=== PATIENT | female | born 1965 | race Caucasian/White ===

== ENCOUNTER 2016-06-16 16:31 | Emergency (ER) | payer MEDICAID ==
[~2016-06-16] VITALS: Ht 154.9 cm; Wt 66.2 kg
[~2016-06-16 16:31] MED LIST: AMLO5 PO; BACT800T5 PO; CLIN1CAP6 PO
[2016-06-16 16:59] VITALS: BP 136/95; PULSE 87; RESP 18; TEMP 98.4; O2SAT 97
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
[2016-06-16] MEDS ORDERED: BACT800T5 PO (18:51)
[2016-06-16] MEDS ORDERED: TRAM50TA PO (18:51)
[2016-06-16] MEDS ORDERED: CLIN1CAP6 PO (18:51)
[2016-06-16] MEDS ORDERED: BACT2OIN TOPICAL (18:51)
== END 2016-06-16 19:16 | disposition home or self-care (01) ==
LOC: PHEFT 16:31
DX: L03.113 Cellulitis of right upper limb (principal); L03.114 Cellulitis of left upper limb; S50.861A Insect bite (nonvenomous) of right forearm, initial encounter; S50.862A Insect bite (nonvenomous) of left forearm, initial encounter; B95.62 Methicillin resistant Staphylococcus aureus infection as the cause of diseases classified elsewhere; I10 Essential (primary) hypertension; F17.210 Nicotine dependence, cigarettes, uncomplicated; F41.9 Anxiety disorder, unspecified; W57.XXXA Bitten or stung by nonvenomous insect and other nonvenomous arthropods, initial encounter; Y93.9 Activity, unspecified; Y92.9 Unspecified place or not applicable; Y99.9 Unspecified external cause status
CPT/HCPCS: 86403; 87070; 87186; 87205; 99283

== ENCOUNTER 2016-07-19 18:21 | Emergency (ER) | payer MEDICAID ==
[~2016-07-19] VITALS: Ht 154.9 cm; Wt 62.5 kg
[~2016-07-19 18:21] MED LIST changes: +BACT2OIN TOPICAL; +TRAM50TA PO
[2016-07-19 18:37] VITALS: BP 139/87; PULSE 56; RESP 18; TEMP 98; O2SAT 100
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
[2016-07-19] MEDS ORDERED: MEDR4PAK PO (19:02)
[2016-07-19] MEDS ORDERED: predniSONE 50 MG TAB PO ONE (19:15)
== END 2016-07-19 19:15 | disposition home or self-care (01) ==
LOC: PHEFT 18:21
DX: M54.32 Sciatica, left side (principal); I10 Essential (primary) hypertension; F17.210 Nicotine dependence, cigarettes, uncomplicated; G89.29 Other chronic pain
CPT/HCPCS: 99283; J7512

== ENCOUNTER 2016-08-09 14:15 | Emergency (ER) | payer MEDICAID ==
[~2016-08-09] VITALS: Ht 154.9 cm; Wt 63.0 kg
[~2016-08-09 14:15] MED LIST changes: -BACT2OIN TOPICAL; -BACT800T5 PO; -CLIN1CAP6 PO; +MEDR4PAK PO; -TRAM50TA PO
[2016-08-09 14:17] VITALS: BP 150/110; PULSE 79; RESP 16; TEMP 97.8; O2SAT 99
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
[2016-08-09] MEDS ORDERED: CLINDAMYCIN 150 MG CAP PO ONE (15:45)
[2016-08-09] MEDS ORDERED: ACETAMINOPHEN/HYDROcodone 325 MG/5 MG TAB PO ONE (15:45)
[2016-08-09] MEDS ORDERED: HYDR-3533 PO (15:48)
[2016-08-09] MEDS ORDERED: CLIN1CAP5 PO (15:48)
== END 2016-08-09 16:26 | disposition home or self-care (01) ==
LOC: PHEFT 14:15
DX: L03.114 Cellulitis of left upper limb (principal); L03.113 Cellulitis of right upper limb; F41.9 Anxiety disorder, unspecified; K21.9 Gastro-esophageal reflux disease without esophagitis; I10 Essential (primary) hypertension; F17.200 Nicotine dependence, unspecified, uncomplicated
CPT/HCPCS: 99283

== ENCOUNTER 2016-08-16 00:48 | Emergency (ER) | payer MEDICAID ==
[~2016-08-16] VITALS: Ht 154.9 cm; Wt 65.5 kg
[~2016-08-16 00:48] MED LIST changes: +CLIN1CAP5 PO; +HYDR-3533 PO; -MEDR4PAK PO
[2016-08-16 00:51] VITALS: BP 155/99; PULSE 71; RESP 18; TEMP 97.8; O2SAT 95
[2016-08-16] MEDS ORDERED: MORPHINE SULFATE 4 MG/ML INJ IV PUSH ONE (01:15)
[2016-08-16] MEDS ORDERED: SODIUM CHLORIDE 0.9% FLUSH 10 ML FLUSH IVF PRN (01:15)
[2016-08-16] MEDS ORDERED: SODIUM CHLORID 0.9% 500 ML INJ 500 ML IV ONE (01:15)
[2016-08-16 01:20] VITALS: BP 127/86; PULSE 71; RESP 18; O2SAT 99
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
[2016-08-16 01:26] LABS: AUTOMATED NEUTROPHIL # 8.5 TH/MM3 (1.8-7.7); BASOPHIL # 0.4 TH/MM3 (0-0.2); BASOPHIL % 3.7 % (0.0-2.0); EOSINOPHIL # 0.1 TH/MM3 (0-0.4); EOSINOPHIL % 0.7 % (0.0-4.0); HEMATOCRIT 38.8 % (35.0-46.0); HEMO FLAGS DIFF FINAL; LYMPH % 18.2 % (9.0-44.0); LYMPHOCYTE # 2.1 TH/MM3 (1.0-4.8); MEAN CELL VOLUME 84.3 FL (80.0-100.0); MEAN CORPUSCULAR HEMOGLOBIN 27.7 PG (27.0-34.0); MEAN CORPUSCULAR HGB CONC 32.9 % (32.0-36.0); MONO % 6.2 % (0.0-8.0); NEUT % 71.2 % (16.0-70.0); PLATELET COUNT 280 TH/MM3 (150-450); RED BLOOD COUNT 4.61 MIL/MM3 (4.00-5.30); RED CELL DISTRIBUTION WIDTH 13.9 % (11.6-17.2); WHITE BLOOD COUNT 11.8 TH/MM3 (4.0-11.0)
[2016-08-16] MEDS ORDERED: IMIPENEM/CILASTAT 500 MG in NS MINIBAG 100 ML IV ONE (01:30)
[2016-08-16 01:33] LABS: POTASSIUM 3.6 MEQ/L (3.5-5.1)
[2016-08-16 01:36] LABS: BICARBONATE 26.2 MEQ/L (21.0-32.0)
[2016-08-16 02:00] VITALS: BP 144/102; PULSE 72; RESP 18; O2SAT 99
[2016-08-16] MEDS ORDERED: IOHEXOL 350 MG/ML 10 ML VIAL (for RAD DIAG) IV ONE (02:08)
[2016-08-16 03:00] VITALS: BP 153/101; PULSE 82; RESP 18; O2SAT 95
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
== END 2016-08-16 03:40 | disposition left against medical advice (07) ==
LOC: PHED 00:48
DX: L03.213 Periorbital cellulitis (principal); K08.89 Other specified disorders of teeth and supporting structures; I10 Essential (primary) hypertension; F17.200 Nicotine dependence, unspecified, uncomplicated; Z86.59 Personal history of other mental and behavioral disorders; Z86.79 Personal history of other diseases of the circulatory system; Z87.19 Personal history of other diseases of the digestive system; Z87.39 Personal history of other diseases of the musculoskeletal system and connective tissue; Z86.14 Personal history of Methicillin resistant Staphylococcus aureus infection; Z53.29 Procedure and treatment not carried out because of patient's decision for other reasons
CPT/HCPCS: 70487; 80048; 85025; 96361; 96365; 96375; 99283; J0743; J2270; J7040; Q9967

== ENCOUNTER 2016-09-23 14:19 | Emergency (ER) | payer MEDICAID ==
[~2016-09-23] VITALS: Ht 154.9 cm; Wt 61.0 kg
[~2016-09-23 14:19] MED LIST changes: -HYDR-3533 PO
[2016-09-23 14:21] VITALS: BP 159/102; PULSE 89; RESP 16; TEMP 98.4; O2SAT 99
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
[2016-09-23] MEDS ORDERED: predniSONE 20 MG TAB PO ONE (14:30)
[2016-09-23] MEDS ORDERED: PRED20 PO (14:35)
[2016-09-23] MEDS ORDERED: TRAM50TA PO (14:35)
[2016-09-23] MEDS ORDERED: ORPH100T99 PO (14:35)
== END 2016-09-23 14:40 | disposition home or self-care (01) ==
LOC: PHEFT 14:19
DX: M54.5 Low back pain (principal); M79.605 Pain in left leg; I10 Essential (primary) hypertension; F17.200 Nicotine dependence, unspecified, uncomplicated; Z86.59 Personal history of other mental and behavioral disorders; Z86.79 Personal history of other diseases of the circulatory system; Z87.19 Personal history of other diseases of the digestive system; Z87.39 Personal history of other diseases of the musculoskeletal system and connective tissue; Z86.14 Personal history of Methicillin resistant Staphylococcus aureus infection
CPT/HCPCS: 99283; J7512

== ENCOUNTER 2016-09-26 18:51 | Emergency (ER) | payer MEDICAID ==
[~2016-09-26] VITALS: Ht 154.9 cm; Wt 61.7 kg
[~2016-09-26 18:51] MED LIST changes: -CLIN1CAP5 PO; +ORPH100T99 PO; +PRED20 PO; +TRAM50TA PO
[2016-09-26 18:54] VITALS: BP 144/107; PULSE 98; RESP 16; TEMP 98.7; O2SAT 99
[2016-09-26] MEDS ORDERED: ROBA750T PO (19:58)
[2016-09-26] MEDS ORDERED: HYDR-3533 PO (19:58)
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
== END 2016-09-26 20:20 | disposition home or self-care (01) ==
LOC: PHED 18:51 → PHEFT 20:20
DX: M54.32 Sciatica, left side (principal); I10 Essential (primary) hypertension; F17.210 Nicotine dependence, cigarettes, uncomplicated
CPT/HCPCS: 99284

== ENCOUNTER 2016-12-04 00:32 | Emergency (ER) | payer OTHER, MEDICAID ==
[~2016-12-04] VITALS: Ht 154.9 cm; Wt 60.0 kg
[~2016-12-04 00:32] MED LIST changes: +HYDR-3533 PO; +ROBA750T PO
[2016-12-04 00:37] VITALS: BP 166/89; PULSE 82; RESP 14; TEMP 98.8; O2SAT 99
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
[2016-12-04] MEDS ORDERED: KETOROLAC TROMETHAMINE 60 MG/2 ML (IM) VIAL IM ONE (01:00)
[2016-12-04] MEDS ORDERED: ORPHENADRINE INJ 60 MG/2 ML AMP IM ONE (01:00)
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
[2016-12-04] MEDS ORDERED: IBUPROFEN 600 MG TAB PO ONE (02:00)
[2016-12-04] MEDS ORDERED: METHOCARBAMOL 500 MG TAB PO ONE (02:00)
[2016-12-04] MEDS ORDERED: NAPR500 PO (02:24)
[2016-12-04] MEDS ORDERED: ROBA500T PO (02:24)
== END 2016-12-04 02:56 | disposition home or self-care (01) ==
LOC: NEPD 00:32
DX: S46.912A Strain of unspecified muscle, fascia and tendon at shoulder and upper arm level, left arm, initial encounter (principal); S50.811A Abrasion of right forearm, initial encounter; S40.812A Abrasion of left upper arm, initial encounter; I10 Essential (primary) hypertension; F17.210 Nicotine dependence, cigarettes, uncomplicated; V43.72XA Person on outside of car injured in collision with other type car in traffic accident, initial encounter; Y93.89 Activity, other specified; Y92.410 Unspecified street and highway as the place of occurrence of the external cause
CPT/HCPCS: 71010; 73030; 99284

== ENCOUNTER 2018-01-01 04:39 | Inpatient (IN) ==
[2018-01-01] MEDS ORDERED: Vancomycin Inj 1,000 MG in Sodium Chlor 0.9% Inj 250 ML IV.SIG ONE (04:47)
--- NOTE | 2018-01-01 04:48 | ED ---
HPI General Chief Complaint: Skin/Abscess/Foreign Body Stated Complaint: MEDICAL Time Seen by Provider: 01/01/18 04:42 History of Present Illness HPI narrative: 52-year-old female presents to the emergency department for complaint of pleuritic chest pain and shortness of breath also for complaint of injury to the left index finger. One week ago she shut her left index finger into her car door and then 2 days ago started noticing redness since patient is able to move the finger back and forth but is not able to palpate the finger secondary to severe pain with palpation. Patient complains of severe chest pain that worsens with any movement or deep breathing. Patient denies any recent trauma or injury. No fever chills. No axillary tenderness or lymphadenopathy. Patient is right-handed. Patient is taken no pain for her symptoms. Patient arrived by EMS transport. Patient denies any chronic medical conditions. Review of medical records indicates patient has had several admissions for cellulitis and abscess that has been methicillin- resistant staph. Complete Quality Measures for STEMI Alert Patients Related Data Home Medications Medication Instructions Recorded Confirmed No Known Home Medications 01/01/18 01/01/18 Allergies Allergy/AdvReac Type Severity Reaction Status Date / Time cephalexin Allergy Severe HIVE Verified 01/01/18 04:42 penicillin G Allergy Severe HIVES, Verified 01/01/18 04:42 THROAT SWELLS propoxyphene Allergy Severe Hives Verified 01/01/18 04:42 diclofenac AdvReac Severe GI BLEED Verified 01/01/18 04:42 etodolac AdvReac Severe GI BLEED Verified 01/01/18 04:42 flurbiprofen AdvReac Severe GI BLEED Verified 01/01/18 04:42 ibuprofen AdvReac Severe GI BLEED Verified 01/01/18 04:42 indomethacin AdvReac Severe GI BLEED Verified 01/01/18 04:42 ketoprofen AdvReac Severe GI BLEED Verified 01/01/18 04:42 ketorolac AdvReac Severe GI BLEED Verified 01/01/18 04:42 naproxen AdvReac Severe GI BLEED Verified 01/01/18 05:30 oxaprozin AdvReac Severe GI BLEED Verified 01/01/18 05:30 Review of Systems ROS: all other systems reviewed are negative PMFSH Medical History Medical History Bowel obstruction (Acute) History of hysterectomy (Acute) Social History Social History Smoking Status: Current every day smoker Tobacco Type: Cigarettes How Often Do You Have a Drink Containing Alcohol: 2 to 4 times a month Recent Travel in [facility] within the Last 8 Weeks: No Recent Out of Country Travel within the Last 8 Weeks: No Exam Narrative Exam Narrative: GENERAL: Well-nourished, well-developed patient. SKIN: Focused skin assessment warm/dry. HEAD: Normocephalic. EYES: No scleral icterus. No injection or drainage. NECK: Supple, trachea midline. No JVD or lymphadenopathy. CARDIOVASCULAR: Regular rate and rhythm without murmurs, gallops, or rubs. RESPIRATORY: Breath sounds equal bilaterally. No accessory muscle use. GASTROINTESTINAL: Abdomen soft, non-tender, nondistended. MUSCULOSKELETAL: No cyanosis, or edema. Attention left upper extremity patient has soft tissue swelling and redness and tenderness to palpation overlying the dorsum of the left hand extending to the left index finger where there is a 2 cm x 2 cm ulcerative lesion with tenderness and serous drainage. Patient is able to perform left index finger flexion extension at the second MCP PIP and DIP range of motion for flexion is limited secondary to soft tissue swelling but patient does not complain of pain with range of motion of the digit only with direct palpation of the soft tissue overlying the dorsum of left hand no ascending erythema soft tissue swelling is also noted isolated to the dorsum of the left arm no axillary tenderness or lymphadenopathy noted. BACK: Nontender without obvious deformity. No CVA tenderness. Course Consultations Consultation #1: discussed with Dr Gilmore and Dr Black Time: 08:28 Initial Documented Vital Signs Temperature 99.2 F 01/01/18 04:43 Pulse Rate 95 H 01/01/18 04:43 Respiratory Rate 24 01/01/18 04:43 Blood Pressure 168/112 H 01/01/18 04:43 Pulse Oximetry 100 01/01/18 04:43 Last Documented Vital Signs Temperature 99.2 F 01/01/18 04:43 Pulse Rate 88 01/01/18 06:12 Respiratory Rate 20 01/01/18 06:12 Blood Pressure 158/94 H 01/01/18 06:12 Pulse Oximetry 100 01/01/18 06:12 Medical Decision Making MDM Narrative Medical decision making narrative: 52-year-old female presents to the emergency department by EMS transport for complaint of pleuritic chest pain with shortness of breath in for redness and swelling of the left hand specifically dorsal aspect and affecting the left index finger with ulcerative abrasion injury radial aspect 2 cm x 2 cm with serous drainage. Patient does not appear to have pain on active range of motion or passive range of motion of the left index finger but does have soft tissue swelling over the dorsum of the left hand and that is tender to palpation. No ascending erythema. Patient has second lesion on the dorsal aspect of the mid left forearm no purulent drainage minimally tender to direct palpation no deformity noted. IV access obtained specimens collected and sent for resulting including culture of the left index finger patient placed on cardiac rehabilitation specialist with continuous pulse oximetry patient administered a one-time dose of morphine sulfate 3 mg IV with Zofran 4 mg IV. CTA negative for PE; CT left hand shows no evidence of fluid collection for abscess positive soft tissue is noted specifically of the left index finger. Rhodell case discussed with on-call hand surgeon Dr. Wilder Brownlee at this point time patient does not appear to have acute surgical tenosynovitis affecting the left index finger as no pain on flexion extension of the digit passively or actively however patient does have evidence of cellulitis with marked swelling of the left index finger per hand surgeon request consult after admitted to medicine service. Call placed to [facility] service for admission Medical Screen Exam Complete: Yes Emergency Medical Condition: Yes Differential Diagnosis Differential Diagnosis: cellulitis abscess tenosynovitis chest pain atypical chest pain pleurisy costochondritis PE pneumothorax pneumonia polysubstance abuse alcohol intoxication [place] Medical Records Medical records reviewed: Yes I reviewed the patient's medical records. Lab Data Result diagrams: 01/01/18 05:00 01/01/18 05:00 Lab Results 01/01/18 01/01/18 01/01/18 Range/Units 05:00 05:00 05:00 WBC 13.2 H (4.0-11.0) th/mm3 RBC 4.25 (4.00-5.30) mil/mm3 Hgb 12.4 (11.6-15.3) gm/dL Hct 37.4 (35.0-46.0) % MCV 87.9 (80.0-100.0) fL MCH 29.1 (27.0-34.0) pg MCHC 33.1 (32.0-36.0) % RDW 14.4 (11.6-17.2) % Plt Count 217 (150-450) th/mm3 MPV 10.0 (7.0-11.0) fL Neut % (Auto) 80.5 H (16.0-70.0) % Lymph % (Auto) 12.2 (9.0-44.0) % [place] % (Auto) 5.9 (0.0-8.0) % Eos % (Auto) 1.0 (0.0-4.0) % Baso % (Auto) 0.4 (0.0-2.0) % Neut # (Auto) 10.6 H (1.8-7.7) th/mm3 Lymph # (Auto) 1.6 (1.0-4.8) th/mm3 [place] # (Auto) 0.8 (0.0-0.9) th/mm3 Eos # (Auto) 0.1 (0.0-0.4) th/mm3 Baso # (Auto) 0.1 (0.0-0.2) th/mm3 WBC Differential . Differential Comment Auto diff final PT 10.0 (9.8-11.6) sec INR 1.0 Ratio APTT 32.8 H (24.3-30.1) sec D-Dimer Quant (PE/DVT) 0.87 H (0.00-0.50) mg/L FEU Sodium 139 (136-145) meq/L Potassium 3.2 L (3.5-5.1) meq/L Chloride 103 (98-107) meq/L Carbon Dioxide 25.7 (21.0-32.0) meq/L Anion Gap 10 (5-15) meq/L BUN 6 L (7-18) mg/dL Creatinine 0.76 (0.50-1.00) mg/dL Estimated GFR 81 L (>89) mL/min Random Glucose 106 (74-106) mg/dL Lactic Acid (0.4-2.0) mmol/L Calcium 8.2 L (8.5-10.1) mg/dL Magnesium 2.3 (1.5-2.5) mg/dL Troponin I Less than 0.02 L (0.02-0.05) ng/mL Urine Opiates Screen (Neg) Ur Barbiturates Screen (Neg) Ur Amphetamines Screen (Neg) U Benzodiazepines Scrn (Neg) Urine Cocaine Screen (Neg) U Cannabinoids Screen (Neg) Serum Alcohol Less than 3 (0-5) mg/dL 01/01/18 01/01/18 Range/Units 05:00 06:00 WBC (4.0-11.0) th/mm3 RBC (4.00-5.30) mil/mm3 Hgb (11.6-15.3) gm/dL Hct (35.0-46.0) % MCV (80.0-100.0) fL MCH (27.0-34.0) pg MCHC (32.0-36.0) % RDW (11.6-17.2) % Plt Count (150-450) th/mm3 MPV (7.0-11.0) fL Neut % (Auto) (16.0-70.0) % Lymph % (Auto) (9.0-44.0) % [place] % (Auto) (0.0-8.0) % Eos % (Auto) (0.0-4.0) % Baso % (Auto) (0.0-2.0) % Neut # (Auto) (1.8-7.7) th/mm3 Lymph # (Auto) (1.0-4.8) th/mm3 [place] # (Auto) (0.0-0.9) th/mm3 Eos # (Auto) (0.0-0.4) th/mm3 Baso # (Auto) (0.0-0.2) th/mm3 WBC Differential Differential Comment PT (9.8-11.6) sec INR Ratio APTT (24.3-30.1) sec D-Dimer Quant (PE/DVT) (0.00-0.50) mg/L FEU Sodium (136-145) meq/L Potassium (3.5-5.1) meq/L Chloride (98-107) meq/L Carbon Dioxide (21.0-32.0) meq/L Anion Gap (5-15) meq/L BUN (7-18) mg/dL Creatinine (0.50-1.00) mg/dL Estimated GFR (>89) mL/min Random Glucose (74-106) mg/dL Lactic Acid 1.9 (0.4-2.0) mmol/L Calcium (8.5-10.1) mg/dL Magnesium (1.5-2.5) mg/dL Troponin I (0.02-0.05) ng/mL Urine Opiates Screen Neg (Neg) Ur Barbiturates Screen Neg (Neg) Ur Amphetamines Screen Neg (Neg) U Benzodiazepines Scrn Neg (Neg) Urine Cocaine Screen Pos H (Neg) U Cannabinoids Screen Neg (Neg) Serum Alcohol (0-5) mg/dL Imaging Data Radiologist's impression: Chest X-Ray 01/01/18 04:43 CONCLUSION: No evidence of acute cardiopulmonary disease. Hand X-Ray 01/01/18 04:45 CONCLUSION: Pointer finger predominant soft tissue swelling. No fracture or subluxation. Chest CTA 01/01/18 06:17 CONCLUSION: 1. No evidence of pulmonary embolus. 2. Nonspecific prominence of multiple bilateral axillary lymph nodes. Recommend clinical correlation. 3. Diffuse bilateral septal thickening and bibasilar atelectasis, with more focal regions of groundglass in the superior segment right lower lobe. Recommend short term (3 month) CT follow-up to ensure resolution. The axillary lymph nodes can also be further evaluated at this time. Hand CT 01/01/18 06:17 CONCLUSION: 1. Diffuse soft tissue swelling/edema of the index/pointer finger. No focal fluid collection to suggest an abscess. No fracture. Discharge Plan Discharge Disposition Patient Disposition: 30 Still Patient Discharge Condition Condition: Stable Discharge Details Diagnosis: Cellulitis of finger of left hand, Cellulitis of dorsum of hand, Chest pain, Cocaine abuse Physicians Team ED Provider: Violette Holt Primary Care Provider: UNKNOWN, Rxs /Orders / Referrals /Forms Prescriptions: No Action No Known Home Medications RF: 0 Status ED Status: With Doctor
[2018-01-01] MEDS ORDERED: Morphine Inj 4 MG/ML Vial IV.PUSH ONE (05:06)
--- NOTE | 2018-01-01 05:18 | XR ---
EXAM DATE: 01/01/2018 5:15 AM EDT AGE/SEX: 52 years / Female INDICATIONS: Chest pain today. CLINICAL DATA: This is the patient's initial encounter. Patient reports that signs and symptoms have been present for 1 day and indicates a pain score of 10/10. MEDICAL/SURGICAL HISTORY: None. None. [place] [facility] [place] . FINDINGS: A single AP view of the chest demonstrates the lungs to be symmetrically aerated without evidence of mass, infiltrate or effusion. The cardiomediastinal contours are unremarkable. Osseous structures a re intact. CONCLUSION: No evidence of acute cardiopulmonary disease. Electronically signed by: Fernie De Leon MD 01/01/2018 5:17 AM EDT
--- NOTE | 2018-01-01 05:26 | XR ---
EXAM DATE: 01/01/2018 5:16 AM EDT AGE/SEX: 52 years / Female INDICATIONS: Left hand 2nd digit open sores after slamming hand in car door. CLINICAL DATA: This is the patient's initial encounter. Patient reports that signs and symptoms have been present for 2 days and indicates a pain score of 6/10. MEDICAL/SURGICAL HISTORY: None. None. COMPARISON: No prior exams available for comparison. FINDINGS: There is soft tissue swelling evident, especially the pointer finger. No fracture or subluxation demo nstrated. 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 No erosive elizondo es are seen. CONCLUSION: Pointer finger predominant soft tissue swelling. No fracture or subluxation. Electronically signed by: Fernie De Leon MD 01/01/2018 5:25 AM EDT
[2018-01-01 05:32] LABS: Baso # (Auto) 0.1 th/mm3 (0.0-0.2); Baso % (Auto) 0.4 % (0.0-2.0); Eos # (Auto) 0.1 th/mm3 (0.0-0.4); Hematocrit 37.4 % (35.0-46.0); Hemoglobin 12.4 gm/dL (11.6-15.3); Lymph # (Auto) 1.6 th/mm3 (1.0-4.8); Lymph % (Auto) 12.2 % (9.0-44.0); Mean Corpuscular HGB Conc 33.1 % (32.0-36.0); Mean Corpuscular Hemoglobin 29.1 pg (27.0-34.0); Mean Corpuscular Volume 87.9 fL (80.0-100.0); Mono # (Auto) 0.8 th/mm3 (0.0-0.9); Mono % (Auto) 5.9 % (0.0-8.0); Neut # (Auto) 10.6 th/mm3 (1.8-7.7); Neut % (Auto) 80.5 % (16.0-70.0); Platelet Count 217 th/mm3 (150-450); Red Blood Count 4.25 mil/mm3 (4.00-5.30); Red Cell Distribution Width 14.4 % (11.6-17.2); White Blood Count 13.2 th/mm3 (4.0-11.0)
[2018-01-01 05:53] LABS: Activated Partial Thrombo Time 32.8 sec (24.3-30.1)
[2018-01-01 05:55] LABS: D-Dimer 0.87 mg/L FEU (0.00-0.50)
[2018-01-01 05:56] LABS: Anion Gap 10 meq/L (5-15); Blood Urea Nitrogen 6 mg/dL (7-18); Calcium 8.2 mg/dL (8.5-10.1); Carbon Dioxide 25.7 meq/L (21.0-32.0); Chloride 103 meq/L (98-107); Glomerular Filtration Rate 81 mL/min (>89); Glucose,Random 106 mg/dL (74-106); Magnesium 2.3 mg/dL (1.5-2.5); Potassium 3.2 meq/L (3.5-5.1); Sodium 139 meq/L (136-145)
[2018-01-01 06:19] LABS: Amphetamine Screen,Urine Neg (Neg); Barbiturate Screen,Urine Neg (Neg); Cannabinoid Screen,Urine Neg (Neg); Cocaine Screen,Urine Pos (Neg)
[2018-01-01 06:20] LABS: Opiate Screen,Urine Neg (Neg)
--- NOTE | 2018-01-01 07:09 | CT ---
EXAM DATE: 01/01/2018 6:55 AM EDT AGE/SEX: 52 years / Female INDICATIONS: Pleuratic chest pain and dyspnea CLINICAL DATA: This is the patient's initial encounter. Patient reports that signs and symptoms have been present for 1 day and indicates a pain score of 3/10. MEDICAL/SURGICAL HISTORY: . Bowel obstruction Hysterectomy. RADIATION DOSE: 7.88 CTDI (mGy) COMPARISON: [facility] [place], [place]ST 1V SINGLE AP, 01/01/2018. . TECHNIQUE: Volumetric scanning was performed using a multi-row detector CT scanner during bolus infu faye of 75 ml Omnipaque 350 (iohexol) nonionic water-soluble contrast as a single exam dose. The patricio a was post processed with a variety of visualization algorithms including full volume maximum intensi ty projection and sliding thin slab reformation. Using automated exposure control and adjustment of t he mA and/or kV according to patient size, radiation dose was kept as low as reasonably achievable to obtain optimal diagnostic quality images. DICOM format image data is available electronically for r eview and comparison. FINDINGS: Pulmonary Arteries: No filling defects are seen in the pulmonary arteries out to the subsegmental ve ssels. The left and right pulmonary arteries are normal in diameter. Lung: Diffuse septal thickening bilaterally. Bibasilar dependent atelectasis. A few additional regio ns of focal groundglass, including in the superior segment right lower lobe, both along and adjacent to the right major fissure. Effusion: None. Mediastinum: Multiple subcentimeter mediastinal/hilar lymph nodes. Other: Multiple prominent bilateral axillary lymph nodes bilaterally, particularly on the left. CONCLUSION: 1. No evidence of pulmonary embolus. 2. Nonspecific prominence of multiple bilateral axillary lymph nodes. Recommend clinical correlation . 3. Diffuse bilateral septal thickening and bibasilar atelectasis, with more focal regions of groundg lass in the superior segment right lower lobe. Recommend short term (3 month) CT follow-up to ensure resolution. The axillary lymph nodes can also be further evaluated at this time. Electronically signed by: Jesica Eddy MD 01/01/2018 7:07 AM EDT
--- NOTE | 2018-01-01 07:20 | CT ---
EXAM DATE: 01/01/2018 7:00 AM EDT AGE/SEX: 52 years / Female INDICATIONS: Left hand swelling and redness CLINICAL DATA: This is the patient's initial encounter. Patient reports that signs and symptoms have been present for 3 days and indicates a pain score of 6/10. MEDICAL/SURGICAL HISTORY: None. Hysterectomy. RADIATION DOSE: 10.25 CTDI (mGy) COMPARISON: [facility], HAND COMPLETE LEFT MIN 3V, 01/01/2018. . TECHNIQUE: Multiple contiguous axial images were acquired using a multi-row detector CT scanner afte r the intravenous administration of 75 ml Omnipaque 350 (iohexol) nonionic water-soluble contrast as a cumulative dose for multiple exams. Multiplanar reconstruction was performed in the sagittal and coronal planes. Using automated exposure control and adjustment of the mA and/or kV according to pa tient size, radiation dose was kept as low as reasonably achievable to obtain optimal diagnostic qual ity images. DICOM format image data is available electronically for review and comparison. FINDINGS: Bones: The bony structures about the hand are in normal alignment. The distal radius, distal ulna a nd carpus are intact. No fracture is seen. Joints: Mild degenerative changes are seen. No significant arthropathy or bony hypertrophy. Soft Tissues: Diffuse soft tissue swelling/edema, particularly of the index/pointer finger. There is a bandage overlying the soft tissues of the index finger. No focal fluid collection to suggest an ab scess. Other: No foreign bodies seen. Post Contrast: No abnormal areas of enhancement are seen in the marrow or soft tissues. CONCLUSION: 1. Diffuse soft tissue swelling/edema of the index/pointer finger. No focal fluid collection to sugg est an abscess. No fracture. Electronically signed by: Jesica Eddy MD 01/01/2018 7:19 AM EDT
--- NOTE | 2018-01-01 08:34 | P.HP ---
History of Present Illness Primary Care Physician: UNKNOWN Chief Complaint: Skin/Abscess/Foreign Body History of Present Illness: This is a pleasant 52 y/o Female who came to ER with complaint of pleuritic chest pain and shortness of breath also for complaint of injury to the left index finger. One week ago she shut her left index finger into her car door and then 2 days ago started noticing redness since patient is able to move the finger back and forth but is not able to palpate the finger secondary to severe pain with palpation. complaint of chest pain worse with activity and deep breathing. Patient denies any recent trauma or injury. No fever chills. No axillary tenderness or lymphadenopathy. Patient is right-handed. She has history of Bowel obstruction, Alcohol dependence and abuse, tobacco dependence, IDU erythema and edema on the left hand specially on the dorsal aspect and affecting the left index finger with ulcerative abrasion injury, radial aspect 2cm x 2cm with serous drainage, Patient has second lesion on the dorsal aspect of the mid left forearm no purulent drainage minimally tender to direct palpation no deformity noted. CTA negative for PE; CT left hand shows no evidence of fluid collection for abscess positive soft tissue is noted specifically of the left index finger. was discussed by ER specialist with Hand acls specialist doctor Wilder Brownlee at this point time patient does not appear to have acute surgical tenosynovitis affecting the left index finger as no pain on flexion extension of the digit passively or actively however patient does have evidence of cellulitis with marked swelling of the left index finger per hand surgeon request consult after admitted to medicine service. Review of Systems All other systems reviewed negative except as stated in HPI PMFSH - History History Provided By: Patient - Medical History Medical History: Medical History (Last Reviewed 01/01/18 @ 05:20 by Violette Holt MD) Bowel obstruction History of hysterectomy - Family History Family History: Family History (Last Updated 01/01/18 @ 16:19 by Aniceto Black MD) Other Family history of cancer Family history of diabetes mellitus - Tobacco History Tobacco Use In Past 30 Days: Yes Smoking Status: Current every day smoker Tobacco Type: Cigarettes - Alcohol History How Often Do You Have a Drink Containing Alcohol: 2 to 4 times a month - Travel History Recent Travel in the [facility] Within the Last 8 Weeks: No Recent Travel Out of the Country Within the Last 8 Weeks: No - Immunization History Tetanus Immunization: <5 Years Hx Influenza Vaccine This Season: No Medications and Allergies Active Medications: Active Medications Sodium Chloride (Ns Flush) 2 ml IV.FLUSH UNSCH PRN PRN Reason: FLUSH AFTER USING IV ACCESS Last Admin: 01/01/18 05:22 Dose: 2 ml Allergies Allergy/AdvReac Type Severity Reaction Status Date / Time cephalexin Allergy Severe HIVE Verified 01/01/18 04:42 penicillin G Allergy Severe HIVES, Verified 01/01/18 04:42 THROAT SWELLS propoxyphene Allergy Severe Hives Verified 01/01/18 04:42 diclofenac AdvReac Severe GI BLEED Verified 01/01/18 04:42 etodolac AdvReac Severe GI BLEED Verified 01/01/18 04:42 flurbiprofen AdvReac Severe GI BLEED Verified 01/01/18 04:42 ibuprofen AdvReac Severe GI BLEED Verified 01/01/18 04:42 indomethacin AdvReac Severe GI BLEED Verified 01/01/18 04:42 ketoprofen AdvReac Severe GI BLEED Verified 01/01/18 04:42 ketorolac AdvReac Severe GI BLEED Verified 01/01/18 04:42 naproxen AdvReac Severe GI BLEED Verified 01/01/18 05:30 oxaprozin AdvReac Severe GI BLEED Verified 01/01/18 05:30 Home Medications Medication Instructions Recorded Confirmed Type No Known Home Medications 01/01/18 01/01/18 History Exam Vital signs: Vital Signs 01/01/18 04:43 01/01/18 04:48 01/01/18 05:27 Temperature 99.2 F Pulse Rate 95 H 100 H 95 H Respiratory Rate 24 20 Blood Pressure 168/112 H 182/96 H Pulse Oximetry 100 100 99 01/01/18 06:12 Temperature Pulse Rate 88 Respiratory Rate 20 Blood Pressure 158/94 H Pulse Oximetry 100 Intake & Output 12/31/17 01/01/18 01/01/18 18:59 06:59 18:59 Intake Total 250 / 250 Balance 250 / 250 Weight 61.235 kg Intake: IV 250 / 250 Vancomycin Inj 1,000 MG In NS 250 / 250 Inj 250 ML @ 250 mls/hr IV.SIG ONCE ONE Rx#:[id number] Narrative: GENERAL: Well-developed patient, in no apparent distress. CARDIOVASCULAR: Regular rate and rhythm without murmurs, gallops, or rubs. RESPIRATORY: Decreased breath sounds bilateral, No wheezing or crackles. GASTROINTESTINAL: Abdomen soft, non-tender, nondistended. Normal active bowel sounds MUSCULOSKELETAL: left upper extremity Edema and erythema, left Index finger, has a 2 cm x 2 cm ulcerative lesion with tenderness and serous drainage. specially dorsal area swelling. NEURO: Alert & Oriented x4 to person, place, time, situation. Moves all ext x4 Results - Labs CBC & Chem 7: 01/01/18 05:00 01/01/18 05:00 Labs: Laboratory Results - last 24 hr 01/01/18 01/01/18 01/01/18 05:00 05:00 05:00 WBC 13.2 H RBC 4.25 Hgb 12.4 Hct 37.4 MCV 87.9 MCH 29.1 MCHC 33.1 RDW 14.4 Plt Count 217 MPV 10.0 Neut % (Auto) 80.5 H Lymph % (Auto) 12.2 Yates % (Auto) 5.9 Eos % (Auto) 1.0 Baso % (Auto) 0.4 Neut # (Auto) 10.6 H Lymph # (Auto) 1.6 Yates # (Auto) 0.8 Eos # (Auto) 0.1 Baso # (Auto) 0.1 WBC Differential . Differential Comment Auto diff final PT 10.0 INR 1.0 APTT 32.8 H D-Dimer Quant (PE/DVT) 0.87 H Sodium 139 Potassium 3.2 L Chloride 103 Carbon Dioxide 25.7 Anion Gap 10 BUN 6 L Creatinine 0.76 Estimated GFR 81 L Random Glucose 106 Lactic Acid Calcium 8.2 L Magnesium 2.3 Troponin I Less than 0.02 L Urine Opiates Screen Ur Barbiturates Screen Ur Amphetamines Screen U Benzodiazepines Scrn Urine Cocaine Screen U Cannabinoids Screen Serum Alcohol Less than 3 01/01/18 01/01/18 05:00 06:00 WBC RBC Hgb Hct MCV MCH MCHC RDW Plt Count MPV Neut % (Auto) Lymph % (Auto) Yates % (Auto) Eos % (Auto) Baso % (Auto) Neut # (Auto) Lymph # (Auto) Yates # (Auto) Eos # (Auto) Baso # (Auto) WBC Differential Differential Comment PT INR APTT D-Dimer Quant (PE/DVT) Sodium Potassium Chloride Carbon Dioxide Anion Gap BUN Creatinine Estimated GFR Random Glucose Lactic Acid 1.9 Calcium Magnesium Troponin I Urine Opiates Screen Neg Ur Barbiturates Screen Neg Ur Amphetamines Screen Neg U Benzodiazepines Scrn Neg Urine Cocaine Screen Pos H U Cannabinoids Screen Neg Serum Alcohol - Imaging Impressions Chest X-Ray 01/01/18 04:43 CONCLUSION: No evidence of acute cardiopulmonary disease. Hand X-Ray 01/01/18 04:45 CONCLUSION: Pointer finger predominant soft tissue swelling. No fracture or subluxation. Chest CTA 01/01/18 06:17 CONCLUSION: 1. No evidence of pulmonary embolus. 2. Nonspecific prominence of multiple bilateral axillary lymph nodes. Recommend clinical correlation. 3. Diffuse bilateral septal thickening and bibasilar atelectasis, with more focal regions of groundglass in the superior segment right lower lobe. Recommend short term (3 month) CT follow-up to ensure resolution. The axillary lymph nodes can also be further evaluated at this time. Hand CT 01/01/18 06:17 CONCLUSION: 1. Diffuse soft tissue swelling/edema of the index/pointer finger. No focal fluid collection to suggest an abscess. No fracture. Caprini VTE Risk Assessment Caprini VTE Risk Assessment: Moderate/High Risk (score >= 2) Caprini Risk Assessment Model: Point Value = 1 Point Value = 2 Point Value = 3 Point Value = 5 Age 41-60 Minor surgery BMI > 25 kg/m2 Swollen legs Varicose veins or History of unexplained or recurrent spontaneous Oral contraceptives or hormone replacement Sepsis (< 1 month) Serious lung disease, including pneumonia (< 1 month) Abnormal pulmonary function Acute myocardial infarction Congestive heart failure (< 1 month) History of inflammatory bowel disease Medical patient at bed rest Age 61-74 Arthroscopic surgery Major open surgery (> 45 min) Laparoscopic surgery (> 45 min) Malignancy Confined to bed (> 72 hours) Immobilizing plaster cast Central venous access Age >= 75 History of VTE Family history of VTE Factor V Leiden Prothrombin [id number] Lupus anticoagulant Anticardiolipin antibodies Elevated serum homocysteine Heparin-induced thrombocytopenia Other congenital or acquired thrombophilia Stroke (< 1 month) Elective arthroplasty Hip, pelvis, or leg fracture Acute spinal cord injury (< 1 month) Prophylaxis Regimen: Total Risk Factor Score Risk Level Prophylaxis Regimen 0-1 Low Early ambulation 2 Moderate Order ONE of the following: *Sequential Compression Device (SCD) *Heparin 5000 units SQ BID 3-4 Higher Order ONE of the following medications: *Heparin 5000 units SQ TID *Enoxaparin/Lovenox 40 mg SQ daily (WT < 150 kg, CrCl > 30 mL/min) *Enoxaparin/Lovenox 30 mg SQ daily (WT < 150 kg, CrCl > 10-29 mL/min) *Enoxaparin/Lovenox 30 mg SQ BID (WT < 150 kg, CrCl > 30 mL/min) AND/OR *Sequential Compression Device (SCD) 5 or more Highest Order ONE of the following medications: *Heparin 5000 units SQ TID (Preferred with Epidurals) *Enoxaparin/Lovenox 40 mg SQ daily (WT < 150 kg, CrCl > 30 mL/min) *Enoxaparin/Lovenox 30 mg SQ daily (WT < 150 kg, CrCl > 10-29 mL/min) *Enoxaparin/Lovenox 30 mg SQ BID (WT < 150 kg, CrCl > 30 mL/min) AND *Sequential Compression Device (SCD) Assessment and Plan - Plan 1. Cellulitis and probable early tenosynovitis started on Vancomycin, following blood cultures and Hand acls specialist evaluation. Leucocytosis 13.2 Neutrophil 80.5, 2. Atypical chest pain continue Cardiac enzymes, cardiac monitoring. Cardiac Enzymes negative and totally asymptomatic at this time. 3. Polysubstance abuse strongly recommended to stop behavior 4. Tobacco dependence strongly recommended to stop smoking. 5. Electrolyte derangement replaced and following. DVT prophylaxis with Lovenox. Code Status: Full code. Discussed Condition With: Patient and ER physician Doctor Violette Holt Discharge Planning: Once clear by Hand senior analysis specialist.
[2018-01-01] MEDS ORDERED: Acetaminophen 325 MG Tablet PO PRN (08:40)
[2018-01-01] MEDS ORDERED: Bisacodyl 10 MG Supp RECTAL PRN (08:40)
[2018-01-01] MEDS ORDERED: Vancomycin Consult Pharmacy OTHER PRN (08:45)
[2018-01-01] MEDS: Enoxaparin Inj 40 MG/0.4 ML Syringe SQ SCH (10:36)
[2018-01-01] MEDS: Senna/Docusate Sodium 8.6/50 MG Tablet PO SCH ×2 (10:37→20:42)
[2018-01-01 10:54] LABS: Creatine Kinase 54 U/L (26-192)
--- NOTE | 2018-01-01 11:54 | ECG ---
Date Performed: 01/01/2018 Time Performed: 04:45:00 PTAGE: 52 years EKG: SINUS TACHYCARDIA ABNORMAL RHYTHM ECG PREVIOUS TRACING : 06/23/2014 22.27 Since the previous tracing, no significant change noted DOCTOR: Tian Rosenthal Interpretating Date/Time 01/01/2018 11:53:49
[2018-01-01] MEDS: Sod Chloride 0.9% Inj 1,000 ML IV.CONT SCH ×3 (12:37→22:41)
[2018-01-01 18:10] LABS: Creatine Kinase 43 U/L (26-192)
--- NOTE | 2018-01-01 20:00 | MB ---
cc: Armen Chapa MD DATE: 01/01/2018 REASON FOR CONSULTATION: Left hand infection. HISTORY OF PRESENT ILLNESS: The patient is a 52-year-old right-hand dominant female presented to the ED with pleuritic chest pain and shortness of breath, also complained of crushing injury to the left index finger with infection and hence hand surgery was consulted. The patient states 1 week ago, she shut her left index finger in a car door and started noticing pain and redness over the left index finger and the dorsal aspect of the hand. She had antibiotics at the outside facility with no change in her symptoms. Complains of redness and swelling involving the left index finger and hand. The patient also complains of multiple pustules involving the forearm. Denies any fever. Denies any chills. Denies any tingling or numbness. The patient states the pain is worse with range of motion of the index finger. PAST MEDICAL AND SURGICAL HISTORY: History is significant for bowel obstruction, substance abuse, and tobacco dependence. PHYSICAL EXAMINATION: GENERAL: The patient is alert, oriented x3. EXTREMITIES: Examination of the left upper extremity reveals multiple pustules over the forearm region with surrounding swelling and erythema. Mild serous drainage noted. She has a dressing over the index finger. Examination after removal of dressing reveals wound over the lateral aspect of the PIP joint measuring about 1 cm in diameter. Surrounding swelling and erythema noted. She also has swelling and erythema over the dorsal aspect of the hand in the index finger. The patient also has erythema and swelling over the volar aspect of the proximal phalanx region of the index finger. She has tenderness over the above region. She also has tenderness over the dorsal aspect of the index finger MP joint region in the hand corresponding to the second metacarpal region. She also has tenderness over the proximal phalanx region of the index finger. No tenderness noted over the distal phalanx or middle phalanx region of the index finger. She also has no tenderness over the A1 chase region of the index finger. Range of motion of the index finger is limited and painful. She has intact sensation distally. She has intact distal circulation. LABORATORY DATA: Laboratory work was reviewed. She has a white count of 13.2 and neutrophil shift of 80%. She also had a CT scan of the left hand, shows evidence of soft tissue swelling around the index finger region and no evidence of collection to suggest an abscess. ASSESSMENT: A 52-year-old female with multiple pustules involving the left forearm with wound over the index finger PIP joint with infection. PLAN: The patient has tenderness along the volar aspect of the index finger proximal phalanx region. She has no tenderness along the whole length of the flexor tendon sheath suggestive of flexor tenosynovitis. My differential diagnosis is still flexor tenosynovitis with associated infection of the hand and the forearm. Plan will be to start her on antibiotics and see how she responds to antibiotics and if there is no improvement in symptoms, we will take off to surgery for exploration and drainage. Armen Chapa MD SE/[facility] , 05:17 PM , 05:29 PM
[2018-01-01] MEDS: Vancomycin Inj 1,000 MG in Sodium Chlor 0.9% Inj 250 ML IV.SIG SCH (22:41)
[2018-01-02] MEDS: Sod Chloride 0.9% Inj 1,000 ML IV.CONT SCH ×4 (06:03→20:53)
[2018-01-02] MEDS: Senna/Docusate Sodium 8.6/50 MG Tablet PO SCH ×2 (08:10→20:03)
[2018-01-02] MEDS: Enoxaparin Inj 40 MG/0.4 ML Syringe SQ SCH (08:10)
[2018-01-02 08:17] LABS: Hematocrit 35.2 % (35.0-46.0); Hemoglobin 11.3 gm/dL (11.6-15.3); Mean Corpuscular HGB Conc 32.3 % (32.0-36.0); Mean Corpuscular Hemoglobin 28.5 pg (27.0-34.0); Mean Corpuscular Volume 88.4 fL (80.0-100.0); Mean Platelet Volume 10.1 fL (7.0-11.0); Platelet Count 196 th/mm3 (150-450); Red Blood Count 3.98 mil/mm3 (4.00-5.30); Red Cell Distribution Width 15.1 % (11.6-17.2); White Blood Count 9.2 th/mm3 (4.0-11.0)
[2018-01-02 08:44] LABS: Anion Gap 6 meq/L (5-15); Blood Urea Nitrogen 4 mg/dL (7-18); Calcium 8.1 mg/dL (8.5-10.1); Chloride 111 meq/L (98-107); Glomerular Filtration Rate Greater Than 89 mL/min (>89); Glucose,Random 95 mg/dL (74-106); Potassium 4.3 meq/L (3.5-5.1); Sodium 143 meq/L (136-145)
--- NOTE | 2018-01-02 12:34 | P.PNIM ---
Subjective Interval history: The patient was complaining of severe hand pain. She said the pain medications took a long time to kick in. She was wondering about breakthrough medication. She asked why the swelling seemed to be going up her arm. Discussed with nursing who reported blood cultures were positive. Physical Exam Vital signs: Vital Signs 01/01/18 16:00 01/01/18 19:50 01/01/18 20:00 Temperature 98.5 F 98 F Pulse Rate 101 H 82 89 Respiratory Rate 17 16 Blood Pressure 160/109 H 145/66 H Pulse Oximetry 98 96 01/01/18 21:50 01/01/18 23:48 01/02/18 00:00 Temperature 97.7 F Pulse Rate 78 71 Respiratory Rate 18 Blood Pressure 157/93 H Pulse Oximetry 97 98 01/02/18 04:00 01/02/18 08:00 01/02/18 10:55 Temperature 98.8 F 98.5 F Pulse Rate 78 78 Respiratory Rate 15 20 Blood Pressure 152/82 H 143/90 H Pulse Oximetry 98 96 94 L Intake & Output 01/01/18 01/02/18 01/02/18 18:59 06:59 18:59 Intake Total 880 / 880 1649 / 1649 1000 / 1000 Output Total 900 / 900 Balance -20 / -20 1649 / 1649 1000 / 1000 Weight 60.5 kg 61.7 kg Intake: IV 1169 / 1169 1000 / 1000 NS Inj 1,000 ML @ 100 mls/hr IV 919 / 919 1000 / 1000 .CONT .Q10H AURY Rx#:[id number] Vancomycin Inj 1,000 MG In NS 250 / 250 Inj 250 ML @ 250 mls/hr IV.SIG Q18H AURY Rx#:[id number] Oral 880 / 880 480 / 480 Output: Urine 900 / 900 Other: # Voids 3 Weight On Admission 60.5 kg Narrative: GENERAL: Well-developed patient, in no apparent distress CARDIOVASCULAR: Regular rate and rhythm without murmurs, gallops, or rubs RESPIRATORY: Decreased breath sounds bilaterally. No wheezing or crackles GASTROINTESTINAL: Abdomen soft, non-tender, nondistended. Normal active bowel sounds MUSCULOSKELETAL: Left upper extremity with edema and erythema, bandaged NEURO: Alert & Oriented x4 to person, place, time, situation. Moves all ext x4 Results - Labs CBC & Chem 7: 01/02/18 07:15 01/02/18 07:15 Laboratory Results - last 24 hr 01/01/18 01/02/18 01/02/18 16:50 07:15 07:15 WBC 9.2 RBC 3.98 L Hgb 11.3 L Hct 35.2 MCV 88.4 MCH 28.5 MCHC 32.3 RDW 15.1 Plt Count 196 MPV 10.1 Sodium 143 Potassium 4.3 D Chloride 111 H D Carbon Dioxide 26.0 Anion Gap 6 BUN 4 L Creatinine 0.56 Estimated GFR Greater than 89 Random Glucose 95 Calcium 8.1 L Total Creatine Kinase 43 Troponin I Less than 0.02 L Microbiology 01/01/18 05:15 Blood - Peripheral Aerobic Blood Culture - Preliminary Staphylococcus aureus 01/01/18 05:15 Blood - Peripheral Anaerobic Blood Culture - Preliminary No growth in 1 day 01/01/18 05:00 Wound - Finger Gram Stain - Final 01/01/18 05:00 Wound - Finger Wound Culture - Preliminary Staphylococcus aureus 01/01/18 05:00 Blood - Peripheral Aerobic Blood Culture - Preliminary No growth in 1 day 01/01/18 05:00 Blood - Peripheral Anaerobic Blood Culture - Preliminary gram positive cocci Assessment and Plan - Plan Cellulitis/ Tenosynovitis/ Bacteremia Hand surgery consult appreciated. Blood cultures and wound culture growing staph aureus. -continue IV vancomycin. -IVFs. -ID consult requested. -hand surgery following. -pain control with a bowel regimen. -would benefit from OT. HTN Exacerbated by pain. -add Tramadol for breakthrough. -Vasotec as needed. Atypical chest pain Cardiac enzymes negative and totally asymptomatic at this time. -resolved. Polysubstance abuse Tox screen positive for cocaine. She also smokes. -cessation instruction. DVT prophylaxis with Lovenox.
[2018-01-02] MEDS: Vancomycin Inj 1,000 MG in Sodium Chlor 0.9% Inj 250 ML IV.SIG SCH (16:04)
--- NOTE | 2018-01-02 17:53 | P.PN ---
Subjective Interval history: complains of pain over left index finger no fever or numbness Physical Exam Vital signs: Vital Signs 01/01/18 19:50 01/01/18 20:00 01/01/18 21:50 Temperature 98 F Pulse Rate 82 89 Respiratory Rate 16 Blood Pressure 145/66 H Pulse Oximetry 96 97 01/01/18 23:48 01/02/18 00:00 01/02/18 04:00 Temperature 97.7 F 98.8 F Pulse Rate 78 71 78 Respiratory Rate 18 15 Blood Pressure 157/93 H 152/82 H Pulse Oximetry 98 98 01/02/18 08:00 01/02/18 10:55 01/02/18 12:00 Temperature 98.5 F 98.3 F Pulse Rate 78 78 Respiratory Rate 20 20 Blood Pressure 143/90 H 156/83 H Pulse Oximetry 96 94 L 96 Intake & Output 01/01/18 01/02/18 01/02/18 18:59 06:59 18:59 Intake Total 880 / 880 1649 / 1649 1250 / 1250 Output Total 900 / 900 Balance -20 / -20 1649 / 1649 1250 / 1250 Weight 60.5 kg 61.7 kg Intake: IV 1169 / 1169 1250 / 1250 NS Inj 1,000 ML @ 100 mls/hr IV 919 / 919 1000 / 1000 .CONT .Q10H AURY Rx#:[id number] Vancomycin Inj 1,000 MG In NS 250 / 250 250 / 250 Inj 250 ML @ 250 mls/hr IV.SIG Q18H AURY Rx#:[id number] Oral 880 / 880 480 / 480 Output: Urine 900 / 900 Other: # Voids 3 Weight On Admission 60.5 kg Narrative: examination of the left hand: necrotic tissue over the radial aspect of the PIP joint region swelling and questionable fluctuation over the dorsal radial aspect of the index finger swelling and redness over the volar aspect of the proximal phalanx region range of index finger is limited and painful intact sensation and circulation multiple scabbed, pustules over both upper and lower extremities. cultures: Staph Results - Labs CBC & Chem 7: 01/02/18 07:15 01/02/18 07:15 Laboratory Results - last 24 hr 01/01/18 01/02/18 01/02/18 16:50 07:15 07:15 WBC 9.2 RBC 3.98 L Hgb 11.3 L Hct 35.2 MCV 88.4 MCH 28.5 MCHC 32.3 RDW 15.1 Plt Count 196 MPV 10.1 Sodium 143 Potassium 4.3 D Chloride 111 H D Carbon Dioxide 26.0 Anion Gap 6 BUN 4 L Creatinine 0.56 Estimated GFR Greater than 89 Random Glucose 95 Calcium 8.1 L Total Creatine Kinase 43 Troponin I Less than 0.02 L Microbiology 01/01/18 05:15 Blood - Peripheral Aerobic Blood Culture - Preliminary Staphylococcus aureus 01/01/18 05:15 Blood - Peripheral Anaerobic Blood Culture - Preliminary No growth in 1 day 01/01/18 05:00 Wound - Finger Gram Stain - Final 01/01/18 05:00 Wound - Finger Wound Culture - Preliminary Staphylococcus aureus 01/01/18 05:00 Blood - Peripheral Aerobic Blood Culture - Preliminary No growth in 1 day 01/01/18 05:00 Blood - Peripheral Anaerobic Blood Culture - Preliminary gram positive cocci Assessment and Plan - Plan 52 year old female with left index finger infection Plan: patient has necrotic tissue over the PIP joint with questionable fluctuation left index will take her for I and D, debridement left index finger possible flexor sheath drainage on 01/03/18 keep the patient npo from midnight,. continue with antibiotics based on ID recommendations
--- NOTE | 2018-01-02 18:50 | P.CONID ---
History of Present Illness Service: ID Consult date: 01/02/18 Requesting Physician: Wilmar Jo Reason for Consult: bacteremia, hand infection Primary Care Provider: UNKNOWN Chief Complaint: Skin/Abscess/Foreign Body History of Present Illness: 52 yo female developped significant pain swelling and redness in her L index finger after slamming it with car door She came to the hospital yday SHe also developped chest pain on the day of presentation Her CTA was negartive for PE, showed ground glass opacities Blood cultures today showd 4/4 bottles positive for MSSA She denies IVDU She also has multiple lesions scattered on BUE, mostly on L forearm and few on the BLE No fever Mild leukocytosis on presentation, which is resolved Pt reports hives aw penicillins and Keflex Review of Systems All other systems reviewed negative except as stated in HPI PMFSH - History History Provided By: Patient - Medical History Medical History: Medical History (Last Reviewed 01/02/18 @ 19:47 by Inez Yarbrough MD) Bowel obstruction History of hysterectomy - Family History Family History: Family History (Last Reviewed 01/02/18 @ 19:47 by Inez Yarbrough MD) Other Family history of cancer Family history of diabetes mellitus - Social History I have reviewed the patient's Social History: Yes - Tobacco History Tobacco Use In Past 30 Days: Yes Smoking Status: Current every day smoker Tobacco Type: Cigarettes - Alcohol History How Often Do You Have a Drink Containing Alcohol: 2 to 4 times a month - Travel History Recent Travel in the [facility] Within the Last 8 Weeks: No Recent Travel Out of the Country Within the Last 8 Weeks: No - Immunization History Tetanus Immunization: <5 Years Hx Influenza Vaccine This Season: No Medications and Allergies Active Medications: Active Medications Acetaminophen (Tylenol) 650 mg PO Q4H PRN PRN Reason: Temp > 100.4 Last Admin: 01/01/18 10:31 Dose: 650 mg Al Hydroxide/Mg Hydroxide (Milk Of Magnesia Liq) 30 ml PO Q12H PRN PRN Reason: Mild Constipation Bisacodyl (Dulcolax Supp) 10 mg RECTAL DAILY PRN PRN Reason: SEVERE CONSITIPATION Enoxaparin Sodium (Lovenox Inj) 40 mg SQ DAILY AURY Last Admin: 01/02/18 08:10 Dose: 40 mg Sodium Chloride (Ns Inj) 1,000 mls @ 100 mls/hr IV.CONT .Q10H [facility] Last Admin: 01/02/18 15:00 Dose: Not Given Vancomycin HCl 1,000 mg/ (Sodium Chloride) 250 mls @ 250 mls/hr IV.SIG Q18H [facility] Last Infusion: 01/02/18 17:25 Dose: Infused Lactulose (Lactulose Liq) 30 ml PO DAILY PRN PRN Reason: SEVERE CONSITIPATION Miscellaneous Information ([facility] Ordered Lab Info) 0 each OTHER ONCE ONE Stop: 01/03/18 10:46 Ondansetron HCl (Zofran Inj) 4 mg IV.PUSH Q6H PRN PRN Reason: NAUSEA OR VOMITING Oxycodone/Acetaminophen (Percocet 5/325 Mg) 1 tab PO Q4H PRN PRN Reason: PAIN SCALE 4 TO 6 MODERATE Oxycodone/Acetaminophen (Percocet 5/325 Mg) 2 tab PO Q4H PRN PRN Reason: PAIN SCALE 7 TO 10 SEVERE Last Admin: 01/02/18 16:04 Dose: 2 tab Pharmacy Profile Note (Vancomycin Consult Pharmacy) 1 each OTHER UNSCH PRN PRN Reason: Pharmacy to dose Senna/Docusate Sodium (Elba-Colace) 1 tab PO BID [facility] Last Admin: 01/02/18 08:10 Dose: 1 tab Sennosides (Senokot) 17.2 mg PO Q12H PRN PRN Reason: Moderate Constipation Sodium Chloride (Ns Flush) 2 ml IV.FLUSH UNSCH PRN PRN Reason: FLUSH AFTER USING IV ACCESS Last Admin: 01/01/18 05:22 Dose: 2 ml Tramadol HCl (Ultram) 50 mg PO Q6H PRN PRN Reason: BREAKTHROUGH PAIN Last Admin: 01/02/18 14:08 Dose: 50 mg Allergies Allergy/AdvReac Type Severity Reaction Status Date / Time cephalexin Allergy Severe HIVE Verified 01/01/18 04:42 penicillin G Allergy Severe HIVES, Verified 01/01/18 04:42 THROAT SWELLS propoxyphene Allergy Severe Hives Verified 01/01/18 04:42 diclofenac AdvReac Severe GI BLEED Verified 01/01/18 04:42 etodolac AdvReac Severe GI BLEED Verified 01/01/18 04:42 flurbiprofen AdvReac Severe GI BLEED Verified 01/01/18 04:42 ibuprofen AdvReac Severe GI BLEED Verified 01/01/18 04:42 indomethacin AdvReac Severe GI BLEED Verified 01/01/18 04:42 ketoprofen AdvReac Severe GI BLEED Verified 01/01/18 04:42 ketorolac AdvReac Severe GI BLEED Verified 01/01/18 04:42 naproxen AdvReac Severe GI BLEED Verified 01/01/18 05:30 oxaprozin AdvReac Severe GI BLEED Verified 01/01/18 05:30 Exam Vital signs: Vital Signs 01/01/18 19:50 01/01/18 20:00 01/01/18 21:50 Temperature 98 F Pulse Rate 82 89 Respiratory Rate 16 Blood Pressure 145/66 H Pulse Oximetry 96 97 01/01/18 23:48 01/02/18 00:00 01/02/18 04:00 Temperature 97.7 F 98.8 F Pulse Rate 78 71 78 Respiratory Rate 18 15 Blood Pressure 157/93 H 152/82 H Pulse Oximetry 98 98 01/02/18 08:00 01/02/18 10:55 01/02/18 12:00 Temperature 98.5 F 98.3 F Pulse Rate 78 78 Respiratory Rate 20 20 Blood Pressure 143/90 H 156/83 H Pulse Oximetry 96 94 L 96 Intake & Output 01/01/18 01/02/18 01/02/18 18:59 06:59 18:59 Intake Total 880 / 880 1649 / 1649 1250 / 1250 Output Total 900 / 900 Balance -20 / -20 1649 / 1649 1250 / 1250 Weight 60.5 kg 61.7 kg Intake: IV 1169 / 1169 1250 / 1250 NS Inj 1,000 ML @ 100 mls/hr IV 919 / 919 1000 / 1000 .CONT .Q10H AURY Rx#:[id number] Vancomycin Inj 1,000 MG In NS 250 / 250 250 / 250 Inj 250 ML @ 250 mls/hr IV.SIG Q18H AURY Rx#:[id number] Oral 880 / 880 480 / 480 Output: Urine 900 / 900 Other: # Voids 3 Weight On Admission 60.5 kg - Constitutional no acute distress, average body habitus - Routine HEENT Exam Head: Present: normocephalic, atraumatic Eye: Present: EOMI, PERRL ENT: Present: mucous membranes moist, oropharynx clear - Routine Neck Exam Present: supple, full ROM - Routine Respiratory Exam Present: decreased breath sounds, CTA bilaterally - Routine Cardiovascular Exam Present: RRR, S1, S2 Comments: no murmurs, rubs or gallops - Routine Abdominal Exam Present: soft, normoactive bowel sounds Comments: not tender, not distended no organomegaly or masses - Routine Extremities Exam Comments: very swollen L index finger with ulceration on the middle finger with necrotic tissue in the wound bed surrounded by ischemic tissue edema also involvens hand and slightluy foremrm + increased epithroclear lymph nodul;e multiple purstules in ascending pattern on the L foream - Routine Skin Exam Present: dry, warm, lesions (pustules) Comments: pustulous lesions in different stages of healing BUE and to less extend BLE - Routine Neurological Exam Present: alert, oriented X3, CN II-XII intact, moving all extremities, vision grossly intact, hearing grossly intact, normal speech - Routine Psychiatric Exam Present: normal affect, normal thought process, cooperative Results - Labs CBC & Chem 7: 01/02/18 07:15 01/08/18 05:40 Labs: Laboratory Results - last 24 hr 01/02/18 01/02/18 07:15 07:15 WBC 9.2 RBC 3.98 L Hgb 11.3 L Hct 35.2 MCV 88.4 MCH 28.5 MCHC 32.3 RDW 15.1 Plt Count 196 MPV 10.1 Sodium 143 Potassium 4.3 D Chloride 111 H D Carbon Dioxide 26.0 Anion Gap 6 BUN 4 L Creatinine 0.56 Estimated GFR Greater than 89 Random Glucose 95 Calcium 8.1 L - Imaging Chest X-Ray 01/01/18 04:43 CONCLUSION: No evidence of acute cardiopulmonary disease. Hand X-Ray 01/01/18 04:45 CONCLUSION: Pointer finger predominant soft tissue swelling. No fracture or subluxation. Chest CTA 01/01/18 06:17 CONCLUSION: 1. No evidence of pulmonary embolus. 2. Nonspecific prominence of multiple bilateral axillary lymph nodes. Recommend clinical correlation. 3. Diffuse bilateral septal thickening and bibasilar atelectasis, with more focal regions of groundglass in the superior segment right lower lobe. Recommend short term (3 month) CT follow-up to ensure resolution. The axillary lymph nodes can also be further evaluated at this time. Hand CT 01/01/18 06:17 CONCLUSION: 1. Diffuse soft tissue swelling/edema of the index/pointer finger. No focal fluid collection to suggest an abscess. No fracture. Assessment and Plan - Plan HIgh grade MSSA bacteremia - source is probaly LIF L index finger infection, MSSA Ascending cellulitis, lymphangitis of LUE High grade allergy to PCN, cephalosporines Pulmonary ground glass infiltrates. Pt is a smoker. cont vancomycin - keep trough 15-20 2 D echo agree with plan for L index finger debridement repeat BC joi Chapa @ b/s
[2018-01-03] MEDS ORDERED: Chlorhexidine Gluconate 2% 1 Pack (2 Cloths) TOPICAL SCH (01:30)
[2018-01-03] MEDS: Sod Chloride 0.9% Inj 1,000 ML IV.CONT SCH ×4 (01:59→20:17)
[2018-01-03] MEDS ORDERED: Sodium Chlor 0.9% Inj 500 ML IV.SIG SCH (02:00)
[2018-01-03] MEDS ORDERED: Metoprolol Tartrate 25 MG Tablet PO PRN (08:31)
[2018-01-03] MEDS: Senna/Docusate Sodium 8.6/50 MG Tablet PO SCH ×2 (08:54→22:06)
[2018-01-03] MEDS: Enoxaparin Inj 40 MG/0.4 ML Syringe SQ SCH (08:54)
[2018-01-03] MEDS ORDERED: Pharmacy Ordered Lab Info OTHER ONE (10:45)
[2018-01-03] MEDS: Vancomycin Inj 1,000 MG in Sodium Chlor 0.9% Inj 250 ML IV.SIG SCH ×2 (11:28→17:20)
--- NOTE | 2018-01-03 11:43 | P.PNIM ---
Subjective Interval history: The patient feels a lot better. She said she was hungry and was upset that her procedure was postponed for this afternoon. She has been ambulatory. No acute concerns. Discussed with nursing. Physical Exam Vital signs: Vital Signs 01/02/18 12:00 01/02/18 16:00 01/02/18 19:55 Temperature 98.3 F 99.6 F Pulse Rate 78 75 80 Respiratory Rate 20 20 Blood Pressure 156/83 H 155/104 H Pulse Oximetry 96 97 01/02/18 20:00 01/03/18 00:00 01/03/18 04:00 Temperature 98.4 F 97.9 F 98.0 F Pulse Rate 85 82 67 Respiratory Rate 18 16 16 Blood Pressure 167/98 H 155/95 H 160/96 H Pulse Oximetry 98 98 98 01/03/18 08:00 01/03/18 08:41 Temperature 97.2 F L Pulse Rate 67 Respiratory Rate 18 Blood Pressure 143/108 H Pulse Oximetry 98 98 Intake & Output 01/02/18 01/03/18 01/03/18 18:59 06:59 18:59 Intake Total 2330 / 2330 2360 / 2360 Balance 2330 / 2330 2360 / 2360 Weight 62 kg Intake: IV 1250 / 1250 1999 / 1999 NS Inj 1,000 ML @ 100 mls/hr IV 1000 / 1000 1999 .CONT .Q10H AURY Rx#:[id number] Vancomycin Inj 1,000 MG In NS 250 / 250 Inj 250 ML @ 250 mls/hr IV.SIG Q18H AURY Rx#:[id number] Oral 1080 / 1080 360 / 360 Other: # Voids 5 1 Date of Last Bowel Movement 01/02/18 01/02/18 # Bowel Movements 1 Narrative: GENERAL: Well-developed patient, in no apparent distress CARDIOVASCULAR: Regular rate and rhythm without murmurs, gallops, or rubs RESPIRATORY: Decreased breath sounds bilaterally. No wheezing or crackles GASTROINTESTINAL: Abdomen soft, non-tender, nondistended. Normal active bowel sounds MUSCULOSKELETAL: Left upper extremity with edema and erythema, bandaged, improved swelling NEURO: Alert & Oriented x4 to person, place, time, situation. Moves all ext x4 Results - Labs CBC & Chem 7: 01/02/18 07:15 01/02/18 07:15 Microbiology 01/01/18 05:15 Blood - Peripheral Aerobic Blood Culture - Preliminary Staphylococcus aureus 01/01/18 05:15 Blood - Peripheral Anaerobic Blood Culture - Preliminary No growth in 2 days 01/01/18 05:00 Blood - Peripheral Aerobic Blood Culture - Preliminary No growth in 2 days 01/01/18 05:00 Blood - Peripheral Anaerobic Blood Culture - Preliminary Staphylococcus aureus 01/01/18 05:00 Wound - Finger Gram Stain - Final 01/01/18 05:00 Wound - Finger Wound Culture - Final Staphylococcus aureus Group A beta Strep Assessment and Plan - Plan Cellulitis/ Tenosynovitis/ Bacteremia Hand surgery consult appreciated. Blood cultures growing staph aureus. Wound culture growing staph and strep. ID consult appreciated. -continue IV vancomycin. -IVFs. -vancomycin IV. -hand surgery following. Anticipate procedure 01/03. -echo pending. -pain control with a bowel regimen. -would benefit from OT. HTN Exacerbated by pain. -add Tramadol for breakthrough. -Vasotec as needed. Atypical chest pain Cardiac enzymes negative and totally asymptomatic at this time. -resolved. Polysubstance abuse Tox screen positive for cocaine. She also smokes. -cessation instruction. -nicotine patch. DVT prophylaxis with Lovenox.
[2018-01-03] MEDS ORDERED: Lidocaine PF 1% Inj 5 ML Syringe INFILTRATN ONE (12:00)
[2018-01-03] MEDS ORDERED: Glycopyrrolate Inj 1 MG/5 ML Syringe IV.PUSH ONE (12:00)
[2018-01-03] MEDS ORDERED: Metoprolol Inj 5 MG/5 ML Vial IV.PUSH ONE (12:00)
[2018-01-03] MEDS ORDERED: hydrALAZINE HCl Inj 20 MG/ML Vial IV.PUSH ONE (12:00)
[2018-01-03] MEDS ORDERED: Chlorhexidine Gluconate 2% 1 Pack (2 Cloths) TOPICAL PRN (14:30)
[2018-01-03] MEDS ORDERED: Sodium Chlor 0.9% Inj 500 ML IV.SIG PRN (14:30)
[2018-01-03] MEDS ORDERED: Lidocaine 2% Inj 50 ML Vial ONE (16:22)
[2018-01-03] MEDS ORDERED: Bupivacaine PF 0.5% Inj 30 ML Vial ONE (16:22)
[2018-01-03] MEDS ORDERED: Neomycin/Polymyxin G.U. Irrigant 1 ML Ampul ONE ×2 (16:25→18:20)
--- NOTE | 2018-01-03 17:05 | ECHRPT ---
Indication: SEPSIS ENDOCARDITIS CONCLUSIONS Normal left ventricular size. Wall thickness is normal. The left ventricular systolic function is low normal with an estimated ejection fraction in the rang e of 50- 55%. Trace mitral valve regurgitation. There is trace tricuspid valve regurgitation. No vegetations noted BP: / HR: Rhythm: MEASUREMENTS (Male / Female) Normal Values Technical Quality:Excellent 2D ECHO LV Diastolic Diameter PLAX 4.6 cm 4.2 - 5.9 / 3.9 - 5.3 cm LV Systolic Diameter PLAX 3.2 cm IVS Diastolic Thickness 1.1 cm 0.6 - 1.0 / 0.6 - 0.9 cm LVPW Diastolic Thickness 1.1 cm 0.6 - 1.0 / 0.6 - 0.9 cm LV Relative Wall Thickness 0.5 RV Internal Dim ED PLAX 2.7 cm LVOT Diameter 1.8 cm LA Systolic Diameter LX 3.7 cm 3.0 - 4.0 / 2.7 - 3.8 cm DOPPLER Right Atrial Pressure 5.0 mmHg FINDINGS LEFT VENTRICLE Normal left ventricular size. Wall thickness is normal. The left ventricular systolic function is low normal with an estimated ejection fraction in the rang e of 50- 55%. RIGHT VENTRICLE Normal right ventricular size and systolic function. LEFT ATRIUM The left atrial size is normal. RIGHT ATRIUM The right atrial size is normal. ATRIAL SEPTUM Normal atrial septal thickness without atrial level shunting by limited color doppler interrogation. AORTA The aortic root and proximal ascending aorta are normal in size on limited imaging. MITRAL VALVE Structurally normal mitral valve. Trace mitral valve regurgitation. AORTIC VALVE Trileaflet aortic valve. No aortic valve stenosis or regurgitation. TRICUSPID VALVE There is trace tricuspid valve regurgitation. PULMONARY VALVE The pulmonary valve is not well visualized. VESSELS The inferior vena cava is normal in size. PERICARDIUM No pericardial effusion. Mp Newton MD (Electronically Signed) Final Date:03 January 2018 17:04
--- NOTE | 2018-01-03 19:33 | P.OP ---
- Preoperative Diagnosis (1) Abscess of left index finger - Postoperative Diagnosis (1) Suppurative tenosynovitis of flexor tendon of left hand (2) Abscess of left index finger Date of procedure: 01/03/18 Procedure: incision,drainage, debridement abscess left index finger drainage flexor tendon sheath left index finger Anesthesia: REMYA Surgeon: Armen Chapa MD Estimated blood loss (mL): 5 Tourniquet time (min): 30 Pathology: other (swab from subcutaneous tissue and flexor tendon sheath left index finger)
[2018-01-03] MEDS ORDERED: Bacitracin/Polymyxin Oint 15 GM Tube TOPICAL ONE (19:53)
[2018-01-03] MEDS ORDERED: Labetalol HCl Inj 100 MG/20 ML Vial ONE (19:57)
[2018-01-03] MEDS ORDERED: Morphine Inj 4 MG/ML Vial ONE (20:19)
[2018-01-03] MEDS ORDERED: fentaNYL Citrate Inj 100 MCG/2 ML Ampul ONE (20:19)
--- NOTE | 2018-01-03 21:29 | MP ---
cc: Armen Chapa MD DATE OF OPERATION: 01/03/2018 PREOPERATIVE DIAGNOSIS: Abscess, left index finger. POSTOPERATIVE DIAGNOSIS: Abscess, left finger and suppurative tenosynovitis, flexor tendon sheath, left index finger. PROCEDURE PERFORMED: Incision, drainage, debridement, left index finger abscess, drainage flexor tendon sheath, left index finger. SURGEON: Armen Chapa MD ANESTHESIA: General. ESTIMATED BLOOD LOSS: Minimal. TOURNIQUET TIME: 30 minutes at 250 mmHg. SPECIMENS: A swab was sent for culture and sensitivity. The first one was from subcutaneous region and the second one was from flexor tendon sheath, left index finger. INDICATIONS: The patient is a 52-year-old female admitted with injury to the left index finger, when the index finger got crushed in a car door about a week ago, the patient noticed pain and swelling over the region. She noticed a scab over the region which got infected. The patient also complained of multiple scabbed lesions all over the body. She was also admitted for chest pain and had a workup done for the chest pain. On examination, she had a necrotic wound along the radial aspect of the PIP joint region of the index finger with surrounding swelling and fluctuation. The patient also had tenderness and redness along the volar aspect of the proximal phalanx region of the index finger. X-rays were negative. The patient was treated with IV antibiotics with persistent and worsening symptoms. She was consented for incision and drainage of left index finger abscess. The patient was also explained about the need for possibility of flexor tendon sheath drainage. DESCRIPTION OF PROCEDURE: The patient was brought to the operating room under general anesthesia. The left upper extremity was sterilely prepped and draped. Incision site was marked over the radial aspect of the index finger proximal phalanx region extending up to the PIP joint. After limb elevation, tourniquet was inflated to 250 mmHg. Incision was then made over the proposed incision site. Soft tissue dissection was carried out. There was extensive necrotic tissue in the subcutaneous region. There was also evidence of a pocket of pus along the radial aspect of the index finger proximal phalanx region extending out to the volar aspect. Necrotic tissue was noted over the radial aspect of the PIP joint region which was debrided. The PIP joint was not involved clinically. Most of the necrotic tissue was superficial to the extensor mechanism. This specimen sent for culture and sensitivity. On further exploration along the radial and volar aspect of the finger, I was able to release the flexor tendon sheath, which appears to be bulging in the region. An incision was made over the flexor tendon sheath, opening up the flexor tendon sheath over the A2 chase region. There was evidence of drainage, minimal purulence within the flexor tendon sheath and decision was made to proceed with drainage of the flexor tendon sheath. An incision was marked over the A1 chase region of the index finger. In an oblique fashion measuring about 2 cm incision was made of the proposed incision site. The A1 chase was exposed, where there was evidence of mild thickening of the A1 chase. The A1 chase was released in a proximal to distal direction. Minimal purulence was noted in the region. Thorough washout of the flexor tendon sheath was then carried out in a proximal to distal direction using a vein cannula. About a liter of solution was used. Along the radial aspect, the wound was washed thoroughly with hydrogen peroxide and this was then followed by normal saline mixed with irrigant. About a liter of solution was used along the radial aspect of the proximal phalanx and PIP joint region of the index finger. Tourniquet was deflated at 30 minutes. A second swab was sent from the A2 chase region prior to the wash. Packing of the wounds was carried out. Incision site was then loosely approximated using 4-0 nylon in a horizontal mattress interrupted fashion. The patient still had an open wound along the radial aspect of the PIP joint from necrotic tissue, which was debrided. Bulky hand dressing was applied, which was held in place by Sof-Rol and bias hand wrap. The patient was recovered and sent to recovery in stable condition. The plan will be to continue with IV antibiotics. Follow up cultures and will change the packing tomorrow. Armen Chapa MD SE/ghazala , 07:39 PM , 07:51 PM
[2018-01-03] MEDS ORDERED: Morphine Inj 4 MG/ML Vial IV.PUSH ONE (21:30)
[2018-01-04] MEDS: Vancomycin Inj 1,000 MG in Sodium Chlor 0.9% Inj 250 ML IV.SIG SCH ×2 (05:05→17:13)
[2018-01-04] MEDS: Sod Chloride 0.9% Inj 1,000 ML IV.CONT SCH ×2 (06:45→16:17)
[2018-01-04] MEDS: Enoxaparin Inj 40 MG/0.4 ML Syringe SQ SCH (09:05)
[2018-01-04] MEDS: Senna/Docusate Sodium 8.6/50 MG Tablet PO SCH ×2 (09:05→20:32)
--- NOTE | 2018-01-04 14:37 | P.PNIM ---
Subjective Interval history: The pt was waiting for her lunch. Her pain was controlled. She has been trying to keep her left arm elevated. Discussed with nursing. Physical Exam Vital signs: Vital Signs 01/03/18 16:00 01/03/18 19:40 01/03/18 19:45 Temperature 98.6 F 97.1 F L Pulse Rate 78 113 H 87 Respiratory Rate 20 12 14 Blood Pressure 197/99 H 172/113 H 163/100 H Pulse Oximetry 98 98 99 01/03/18 20:00 01/03/18 20:15 01/03/18 22:00 Temperature 98.0 F 98.1 F Pulse Rate 73 75 Respiratory Rate 14 16 16 Blood Pressure 160/102 H 162/100 H Pulse Oximetry 99 98 01/04/18 00:00 01/04/18 04:00 01/04/18 08:00 Temperature 97.4 F L 97.6 F 98.0 F Pulse Rate 66 78 52 L Respiratory Rate 18 18 18 Blood Pressure 131/65 116/59 L 127/74 Pulse Oximetry 92 L 94 L 96 Intake & Output 01/03/18 01/04/18 01/04/18 18:59 06:59 18:59 Intake Total 1500 / 1500 1950 / 1950 Output Total 105 / 105 Balance 1500 / 1500 1845 / 1845 Weight 60.4 kg Intake: IV 1500 / 1500 1250 / 1250 NS Inj 1,000 ML @ 100 mls/hr IV 1000 / 1000 1000 / 1000 .CONT .Q10H AURY Rx#:[id number] Vancomycin Inj 1,000 MG In NS 500 / 500 250 / 250 Inj 250 ML @ 250 mls/hr IV.SIG Q12H AURY Rx#:[id number] Oral 0 / 0 Anesthesia Amount 700 / 700 Output: Urine 100 / 100 Estimated Blood Loss 5 / 5 Other: # Voids 5 0 Date of Last Bowel Movement 01/02/18 01/04/18 # Bowel Movements 1 Narrative: GENERAL: Well-developed patient, in no apparent distress CARDIOVASCULAR: Regular rate and rhythm without murmurs, gallops, or rubs RESPIRATORY: Decreased breath sounds bilaterally. No wheezing or crackles GASTROINTESTINAL: Abdomen soft, non-tender, nondistended. Normal active bowel sounds MUSCULOSKELETAL: Left upper extremity with edema and erythema, bandaged, improved swelling NEURO: Alert & Oriented x4 to person, place, time, situation. Moves all ext x4 Results - Labs CBC & Chem 7: 01/02/18 07:15 01/02/18 07:15 Microbiology 01/03/18 05:20 Blood - Peripheral Aerobic Blood Culture - Preliminary No growth in 1 day 01/03/18 05:20 Blood - Peripheral Anaerobic Blood Culture - Preliminary No growth in 1 day 01/03/18 05:27 Blood - Peripheral Aerobic Blood Culture - Preliminary No growth in 1 day 01/03/18 05:27 Blood - Peripheral Anaerobic Blood Culture - Preliminary No growth in 1 day 01/01/18 05:00 Blood - Peripheral Aerobic Blood Culture - Preliminary No growth in 3 days 01/01/18 05:00 Blood - Peripheral Anaerobic Blood Culture - Final Staphylococcus aureus 01/01/18 05:15 Blood - Peripheral Aerobic Blood Culture - Final Staphylococcus aureus 01/01/18 05:15 Blood - Peripheral Anaerobic Blood Culture - Preliminary No growth in 3 days 01/03/18 18:53 Abscess - Finger Gram Stain - Final 01/03/18 18:59 Abscess - Finger Gram Stain - Final 01/03/18 18:59 Abscess - Finger Fungal Smear - Final No fungal elements seen 01/03/18 18:53 Abscess - Finger Fungal Smear - Final No fungal elements seen Assessment and Plan - Plan Cellulitis/ Tenosynovitis/ Bacteremia Hand surgery consult appreciated. Blood cultures growing staph aureus. Wound culture growing staph and strep. ID consult appreciated. S/p incision, drainage , debridement abscess left index finger; drainage flexor tendon sheath left index finger 01/03. Echo with EF 50-55%, no vegetations. -continue IV vancomycin. -IVFs. -vancomycin IV. -hand surgery following. Continue wound care. -pain control with a bowel regimen. HTN Exacerbated by pain. -added Tramadol for breakthrough. -Vasotec as needed. Atypical chest pain Cardiac enzymes negative and totally asymptomatic at this time. -resolved. Polysubstance abuse Tox screen positive for cocaine. She also smokes. -cessation instruction. -nicotine patch. PPx: Per surgery Discharge Planning: Await ID and hand clearance
[2018-01-04] MEDS ORDERED: Pharmacy Ordered Lab Info OTHER ONE (16:45)
--- NOTE | 2018-01-04 17:39 | P.PN ---
Subjective Interval history: complains of mild pain over the left index finger denies any fever complaint with limb elevation no fever Physical Exam Vital signs: Vital Signs 01/03/18 19:40 01/03/18 19:45 01/03/18 20:00 Temperature 97.1 F L 98.0 F Pulse Rate 113 H 87 73 Respiratory Rate 12 14 14 Blood Pressure 172/113 H 163/100 H 160/102 H Pulse Oximetry 98 99 99 01/03/18 20:15 01/03/18 22:00 01/04/18 00:00 Temperature 98.1 F 97.4 F L Pulse Rate 75 66 Respiratory Rate 16 16 18 Blood Pressure 162/100 H 131/65 Pulse Oximetry 98 92 L 01/04/18 04:00 01/04/18 08:00 01/04/18 12:00 Temperature 97.6 F 98.0 F 97.4 F L Pulse Rate 78 52 L 60 Respiratory Rate 18 18 18 Blood Pressure 116/59 L 127/74 146/87 H Pulse Oximetry 94 L 96 98 Intake & Output 01/03/18 01/04/18 01/04/18 18:59 06:59 18:59 Intake Total 1500 / 1500 1950 / 1950 1000 / 1000 Output Total 105 / 105 Balance 1500 / 1500 1845 / 1845 1000 / 1000 Weight 60.4 kg Intake: IV 1500 / 1500 1250 / 1250 1000 / 1000 NS Inj 1,000 ML @ 100 mls/hr IV 1000 / 1000 1000 / 1000 1000 / 1000 .CONT .Q10H AURY Rx#:[id number] Vancomycin Inj 1,000 MG In NS 500 / 500 250 / 250 Inj 250 ML @ 250 mls/hr IV.SIG Q12H AURY Rx#:[id number] Oral 0 / 0 Anesthesia Amount 700 / 700 Output: Urine 100 / 100 Estimated Blood Loss 5 / 5 Other: # Voids 5 0 Date of Last Bowel Movement 01/02/18 01/04/18 # Bowel Movements 1 Narrative: left index finger: dressing and packing in place swelling and redness noted range of motion limited and painful intact sensation and circulation distally cultures: hand: staph Results - Labs CBC & Chem 7: 01/02/18 07:15 01/02/18 07:15 Laboratory Results - last 24 hr 01/04/18 16:50 Vancomycin Trough 9.8 Microbiology 01/03/18 18:53 Wound - Finger Acid Fast Bacilli Smear - Final No acid fast bacilli seen 01/03/18 18:59 Abscess - Finger Acid Fast Bacilli Smear - Final No acid fast bacilli seen 01/03/18 18:53 Abscess - Finger Gram Stain - Final 01/03/18 18:53 Abscess - Finger Wound Culture - Preliminary 01/03/18 18:59 Abscess - Finger Gram Stain - Final 01/03/18 18:59 Abscess - Finger Wound Culture - Preliminary 01/03/18 05:20 Blood - Peripheral Aerobic Blood Culture - Preliminary No growth in 1 day 01/03/18 05:20 Blood - Peripheral Anaerobic Blood Culture - Preliminary No growth in 1 day 01/03/18 05:27 Blood - Peripheral Aerobic Blood Culture - Preliminary No growth in 1 day 01/03/18 05:27 Blood - Peripheral Anaerobic Blood Culture - Preliminary No growth in 1 day 01/01/18 05:00 Blood - Peripheral Aerobic Blood Culture - Preliminary No growth in 3 days 01/01/18 05:00 Blood - Peripheral Anaerobic Blood Culture - Final Staphylococcus aureus 01/01/18 05:15 Blood - Peripheral Aerobic Blood Culture - Final Staphylococcus aureus 01/01/18 05:15 Blood - Peripheral Anaerobic Blood Culture - Preliminary No growth in 3 days 01/03/18 18:59 Abscess - Finger Fungal Smear - Final No fungal elements seen 01/03/18 18:53 Abscess - Finger Fungal Smear - Final No fungal elements seen Assessment and Plan - Plan 52 year old female with left index finger infection with suppurative tenosynovitis s/p drainage Plan: packing pulled out a cm dry dressing applied continue with limb elevation and range of motion exercises continue antibiotics based on ID recommendations hand surgery will follow.
[2018-01-05] MEDS: Sod Chloride 0.9% Inj 1,000 ML IV.CONT SCH ×3 (03:03→22:09)
[2018-01-05] MEDS: Vancomycin Inj 1,000 MG in Sodium Chlor 0.9% Inj 250 ML IV.SIG SCH ×2 (04:46→17:44)
[2018-01-05] MEDS: Enoxaparin Inj 40 MG/0.4 ML Syringe SQ SCH (09:12)
[2018-01-05] MEDS: Senna/Docusate Sodium 8.6/50 MG Tablet PO SCH ×2 (09:12→20:02)
--- NOTE | 2018-01-05 16:49 | P.PNIM ---
Subjective Interval history: Patient complains of inadequately controlled pain today. She has a history of narcotic abuse and has a high tolerance to narcotics. Physical Exam Vital signs: Vital Signs 01/04/18 20:00 01/05/18 00:00 01/05/18 04:00 Temperature 98.9 F 98.7 F 97.6 F Pulse Rate 61 82 60 Respiratory Rate 16 16 16 Blood Pressure 173/92 H 135/81 133/79 Pulse Oximetry 98 97 98 01/05/18 08:00 01/05/18 12:00 Temperature 98.0 F 98.0 F Pulse Rate 48 L 76 Respiratory Rate 20 18 Blood Pressure 164/108 H 179/99 H Pulse Oximetry 95 99 Intake & Output 01/04/18 01/05/18 01/05/18 18:59 06:59 18:59 Intake Total 1730 / 1730 1250 / 1250 1000 / 1000 Balance 1730 / 1730 1250 / 1250 1000 / 1000 Weight 60.4 kg 60.1 kg Intake: IV 1250 / 1250 1250 / 1250 1000 / 1000 NS Inj 1,000 ML @ 100 mls/hr IV 1000 / 1000 1000 / 1000 1000 / 1000 .CONT .Q10H AURY Rx#:[id number] LR 1000 mL Inj 1,000 ML @ 30 0 / 0 mls/hr IV.SIG .Q24H AURY Rx#: [id number] Vancomycin Inj 1,000 MG In NS 250 / 250 250 / 250 Inj 250 ML @ 250 mls/hr IV.SIG Q12H AURY Rx#:[id number] Oral 480 / 480 Other: # Voids 5 3 Date of Last Bowel Movement 01/04/18 01/04/18 # Bowel Movements 1 Narrative: GENERAL: AAOx3, no acute distress, appears older than stated age SKIN: Warm and dry. No rashes HEAD: Atruamtic, normocephalic. EYES: No scleral icterus. No injection or drainage. ENT: Moist mucous membranes, patent nares, no erythema of oropharynx. NECK: Supple, trachea midline. No JVD or lymphadenopathy. Normal thyroid. CARDIOVASCULAR: Regular rate and rhythm. No murmurs, gallops, or rubs. RESPIRATORY: Breath sounds clear equal bilaterally. No crackles or wheezes. No accessory muscle use. GASTROINTESTINAL: Abdomen soft, non-tender, nondistended, normal active bowel sounds MUSCULOSKELETAL: No cyanosis, or edema. Left hand wrapped in gauze with three 1 cm scabbed sores on left forearm NEURO: CN II-XII grossly intact, no focal deficits, no slurring of speech Results - Labs CBC & Chem 7: 01/02/18 07:15 01/02/18 07:15 Laboratory Results - last 24 hr 01/04/18 16:50 Vancomycin Trough 9.8 Microbiology 01/03/18 05:20 Blood - Peripheral Aerobic Blood Culture - Preliminary No growth in 2 days 01/03/18 05:20 Blood - Peripheral Anaerobic Blood Culture - Preliminary No growth in 2 days 01/03/18 05:27 Blood - Peripheral Aerobic Blood Culture - Preliminary No growth in 2 days 01/03/18 05:27 Blood - Peripheral Anaerobic Blood Culture - Preliminary No growth in 2 days 01/01/18 05:00 Blood - Peripheral Aerobic Blood Culture - Preliminary No growth in 4 days 01/01/18 05:00 Blood - Peripheral Anaerobic Blood Culture - Final Staphylococcus aureus 01/01/18 05:15 Blood - Peripheral Aerobic Blood Culture - Final Staphylococcus aureus 01/01/18 05:15 Blood - Peripheral Anaerobic Blood Culture - Preliminary No growth in 4 days 01/03/18 18:53 Abscess - Finger Gram Stain - Final 01/03/18 18:53 Abscess - Finger Wound Culture - Final Staphylococcus aureus Group A beta Strep 01/03/18 18:59 Abscess - Finger Gram Stain - Final 01/03/18 18:59 Abscess - Finger Wound Culture - Final Staphylococcus aureus Group A beta Strep 01/03/18 18:53 Wound - Finger Acid Fast Bacilli Smear - Final No acid fast bacilli seen 01/03/18 18:59 Abscess - Finger Acid Fast Bacilli Smear - Final No acid fast bacilli seen Assessment and Plan - Plan Cellulitis/ Tenosynovitis/ Bacteremia Blood cultures growing staph aureus Wound culture growing staph and strep s/p I&D of flexor tendon sheath and left index finger 01/03 Echocardiogram shows ejection fraction of 50-55%, no vegetations Continue IV vancomycin Continue oxycodone as main pain controlled Hydrocodone replaced tramadol as breakthrough pain option Appreciate hand surgery consult HTN Attempting to achieve better pain control Continue Vasotec as needed. Polysubstance abuse Tox screen positive for cocaine. She also smokes. Cessation recommended Continue nicotine patch. Discharge planning We will send home when cleared by infectious disease and hand surgery
--- NOTE | 2018-01-05 17:53 | P.PNID ---
Subjective Remarks: doing OK afebrile repeat bl clx negative growing GAS, MSSA from her index finger clx Antibiotics: vancomcin Allergies/Adverse Reactions: Allergies cephalexin Allergy (Severe, Verified 01/01/18 04:42) HIVE penicillin G Allergy (Severe, Verified 01/01/18 04:42) HIVES, THROAT SWELLS propoxyphene Allergy (Severe, Verified 01/01/18 04:42) Hives diclofenac Adverse Reaction (Severe, Verified 01/01/18 04:42) GI BLEED etodolac Adverse Reaction (Severe, Verified 01/01/18 04:42) GI BLEED flurbiprofen Adverse Reaction (Severe, Verified 01/01/18 04:42) GI BLEED ibuprofen Adverse Reaction (Severe, Verified 01/01/18 04:42) GI BLEED indomethacin Adverse Reaction (Severe, Verified 01/01/18 04:42) GI BLEED ketoprofen Adverse Reaction (Severe, Verified 01/01/18 04:42) GI BLEED ketorolac Adverse Reaction (Severe, Verified 01/01/18 04:42) GI BLEED naproxen Adverse Reaction (Severe, Verified 01/01/18 05:30) GI BLEED oxaprozin Adverse Reaction (Severe, Verified 01/01/18 05:30) GI BLEED Objective Vital Signs 01/04/18 20:00 01/05/18 00:00 01/05/18 04:00 Temperature 98.9 F 98.7 F 97.6 F Pulse Rate 61 82 60 Respiratory Rate 16 16 16 Blood Pressure 173/92 H 135/81 133/79 Pulse Oximetry 98 97 98 01/05/18 08:00 01/05/18 12:00 01/05/18 16:00 Temperature 98.0 F 98.0 F Pulse Rate 48 L 76 59 L Respiratory Rate 20 18 Blood Pressure 164/108 H 179/99 H Pulse Oximetry 95 99 Intake & Output 01/04/18 01/05/18 01/05/18 18:59 06:59 18:59 Intake Total 1730 / 1730 1250 / 1250 1000 / 1000 Balance 1730 / 1730 1250 / 1250 1000 / 1000 Weight 60.4 kg 60.1 kg Intake: IV 1250 / 1250 1250 / 1250 1000 / 1000 NS Inj 1,000 ML @ 100 mls/hr IV 1000 / 1000 1000 / 1000 1000 / 1000 .CONT .Q10H A[facility]Y Rx#:[id number] LR 1000 mL Inj 1,000 ML @ 30 0 / 0 mls/hr IV.SIG .Q24H [facility]Y Rx#: [id number] Vancomycin Inj 1,000 MG In NS 250 / 250 250 / 250 Inj 250 ML @ 250 mls/hr IV.SIG Q12H [facility]URY Rx#:[id number] Oral 480 / 480 Other: # Voids 5 3 Date of Last Bowel Movement 01/04/18 01/04/18 # Bowel Movements 1 01/03/18 05:20 Blood - Peripheral Aerobic Blood Culture - Preliminary No growth in 2 days 01/03/18 05:20 Blood - Peripheral Anaerobic Blood Culture - Preliminary No growth in 2 days 01/03/18 05:27 Blood - Peripheral Aerobic Blood Culture - Preliminary No growth in 2 days 01/03/18 05:27 Blood - Peripheral Anaerobic Blood Culture - Preliminary No growth in 2 days 01/01/18 05:00 Blood - Peripheral Aerobic Blood Culture - Preliminary No growth in 4 days 01/01/18 05:00 Blood - Peripheral Anaerobic Blood Culture - Final Staphylococcus aureus 01/01/18 05:15 Blood - Peripheral Aerobic Blood Culture - Final Staphylococcus aureus 01/01/18 05:15 Blood - Peripheral Anaerobic Blood Culture - Preliminary No growth in 4 days 01/03/18 18:53 Abscess - Finger Gram Stain - Final 01/03/18 18:53 Abscess - Finger Wound Culture - Final Staphylococcus aureus Group A beta Strep 01/03/18 18:59 Abscess - Finger Gram Stain - Final 01/03/18 18:59 Abscess - Finger Wound Culture - Final Staphylococcus aureus Group A beta Strep 01/03/18 18:53 Wound - Finger Acid Fast Bacilli Smear - Final No acid fast bacilli seen 01/03/18 18:53 Wound - Finger Mycobacterial Culture - Pending 01/03/18 18:59 Abscess - Finger Acid Fast Bacilli Smear - Final No acid fast bacilli seen 01/03/18 18:59 Abscess - Finger Mycobacterial Culture - Pending 01/03/18 18:59 Abscess - Finger Fungal Smear - Final No fungal elements seen 01/03/18 18:59 Abscess - Finger Fungal Culture - Pending 01/03/18 18:53 Abscess - Finger Fungal Smear - Final No fungal elements seen 01/03/18 18:53 Abscess - Finger Fungal Culture - Pending 01/01/18 05:00 Wound - Finger Gram Stain - Final 01/01/18 05:00 Wound - Finger Wound Culture - Final Staphylococcus aureus Group A beta Strep Imaging: ITS Impressions Chest X-Ray 01/01/18 04:43 CONCLUSION: No evidence of acute cardiopulmonary disease. Hand X-Ray 01/01/18 04:45 CONCLUSION: Pointer finger predominant soft tissue swelling. No fracture or subluxation. Chest CTA 01/01/18 06:17 CONCLUSION: 1. No evidence of pulmonary embolus. 2. Nonspecific prominence of multiple bilateral axillary lymph nodes. Recommend clinical correlation. 3. Diffuse bilateral septal thickening and bibasilar atelectasis, with more focal regions of groundglass in the superior segment right lower lobe. Recommend short term ([address]) CT follow-up to ensure resolution. The axillary lymph nodes can also be further evaluated at this time. Hand CT 01/01/18 06:17 CONCLUSION: 1. Diffuse soft tissue swelling/edema of the index/pointer finger. No focal fluid collection to suggest an abscess. No fracture. Physical Exam: GENERAL: NAD SKIN: Warm and dry. HEAD: Atraumatic. Normocephalic. EYES: Pupils equal and round. No scleral icterus. No injection or drainage. ENT: No nasal bleeding or discharge. Mucous membranes pink and moist. NECK: Trachea midline. No JVD. CARDIOVASCULAR: Regular rate and rhythm. No murmurs. RESPIRATORY: No accessory muscle use. Clear to auscultation. Breath sounds equal bilaterally. GASTROINTESTINAL: Abdomen soft, non-tender, nondistended. Hepatic and splenic margins not palpable. MUSCULOSKELETAL: Extremities without clubbing, cyanosis, or edema. No obvious deformities. L hend with dressign in place no ascending cellulits or lymphangioitis NEUROLOGICAL: Awake and alert. No obvious cranial nerve deficits. Motor grossly within normal limits. Five out of 5 muscle strength in the arms and legs. Normal speech. PSYCHIATRIC: Appropriate mood and affect; insight and judgment normal. Assessment and Plan - Plan HIgh grade MSSA bactermia - source is probaly LIF - 2 D echo negative for veg's L index fibnger infection, MSSA Ascending cellulitis, lymphangitis of LUE High grade allergy to PCN, cephalosporines Pulmonary ground glass infiltrates. Pt is a smoker. cont vancomycin - keep trough 15-20 fu repeat BC If repeat BC positive will get ANGY If negative will Rx with IV abx x 2 weeks from 1st neg blood clx
[2018-01-06] MEDS: Vancomycin Inj 1,000 MG in Sodium Chlor 0.9% Inj 250 ML IV.SIG SCH ×2 (04:05→17:02)
[2018-01-06 07:01] LABS: Glomerular Filtration Rate Greater Than 89 mL/min (>89)
[2018-01-06] MEDS: Sod Chloride 0.9% Inj 1,000 ML IV.CONT SCH ×2 (08:29→18:34)
[2018-01-06] MEDS: Senna/Docusate Sodium 8.6/50 MG Tablet PO SCH ×2 (08:30→22:50)
[2018-01-06] MEDS: Enoxaparin Inj 40 MG/0.4 ML Syringe SQ SCH (08:31)
--- NOTE | 2018-01-06 12:00 | P.PN ---
Subjective Interval history: complains of no pain complaint with dressing and limb elevation no fever no numbness Physical Exam Vital signs: Vital Signs 01/05/18 12:00 01/05/18 16:00 01/05/18 20:00 Temperature 98.0 F 97.9 F 98.3 F Pulse Rate 76 71 78 Respiratory Rate 18 18 18 Blood Pressure 179/99 H 139/86 178/106 H Pulse Oximetry 99 97 97 01/06/18 00:00 01/06/18 04:00 01/06/18 08:00 Temperature 98.8 F 97 F L 97.4 F L Pulse Rate 67 61 56 L Respiratory Rate 18 18 18 Blood Pressure 156/99 H 167/99 H 177/102 H Pulse Oximetry 98 91 L 97 Intake & Output 01/05/18 01/06/18 01/06/18 18:59 06:59 18:59 Intake Total 1262.5 / 1262.5 1969 / 1970 1000 / 1000 Output Total 1300 / 1300 Balance 1262.5 / 1262.5 670 / 670 1000 / 1000 Weight 60 kg Intake: IV 1262.5 / 1262.5 1250 / 1250 1000 / 1000 NS Inj 1,000 ML @ 100 mls/hr IV 1000 / 1000 1000 / 1000 1000 / 1000 .CONT .Q10H AURY Rx#:[id number] LR 1000 mL Inj 1,000 ML @ 30 0 / 0 mls/hr IV.SIG .Q24H AURY Rx#: [id number] Vancomycin Inj 1,000 MG In NS 262.5 / 262.5 250 / 250 Inj 250 ML @ 250 mls/hr IV.SIG Q12H [facility] Rx#:[id number] Oral 720 / 720 Output: Urine 1300 / 1300 Other: # Voids 8 4 Date of Last Bowel Movement 01/05/18 # Bowel Movements 1 Narrative: exam left index finger: intact dressing and packing very minimal drainage palm wound is healing well able to make a better intact sensation distally cultures: MSSA Results - Labs CBC & Chem 7: 01/02/18 07:15 01/06/18 05:33 Laboratory Results - last 24 hr 01/06/18 05:33 Creatinine 0.62 Estimated GFR Greater than 89 Microbiology 01/03/18 05:20 Blood - Peripheral Aerobic Blood Culture - Preliminary No growth in 3 days 01/03/18 05:20 Blood - Peripheral Anaerobic Blood Culture - Preliminary No growth in 3 days 01/03/18 05:27 Blood - Peripheral Aerobic Blood Culture - Preliminary No growth in 3 days 01/03/18 05:27 Blood - Peripheral Anaerobic Blood Culture - Preliminary No growth in 3 days 01/01/18 05:00 Blood - Peripheral Aerobic Blood Culture - Final No growth in 5 days 01/01/18 05:00 Blood - Peripheral Anaerobic Blood Culture - Final Staphylococcus aureus 01/01/18 05:15 Blood - Peripheral Aerobic Blood Culture - Final Staphylococcus aureus 01/01/18 05:15 Blood - Peripheral Anaerobic Blood Culture - Final No growth in 5 days 01/03/18 18:53 Abscess - Finger Gram Stain - Final 01/03/18 18:53 Abscess - Finger Wound Culture - Final Staphylococcus aureus Group A beta Strep 01/03/18 18:59 Abscess - Finger Gram Stain - Final 01/03/18 18:59 Abscess - Finger Wound Culture - Final Staphylococcus aureus Group A beta Strep Assessment and Plan - Plan 52 year old female with left index finger infection with suppurative tenosynovitis s/p drainage Plan: packing pulled out dry dressing applied daily dressing changes, clean the surrounding skin with alcohol wipes and dry dressing with 4X4 and cling continue with limb elevation and range of motion exercises continue antibiotics based on ID recommendations cleared from hand surgery for discharge with antibiotics based on ID recommendations follow up in office in one week time after discharge
[2018-01-06] MEDS: Lisinopril 10 MG Tablet PO SCH (12:41)
--- NOTE | 2018-01-06 16:03 | P.PNIM ---
Subjective Interval history: Patient reports that her pain is better controlled after addition of hydrocodone instead of tramadol. Physical Exam Vital signs: Vital Signs 01/05/18 20:00 01/06/18 00:00 01/06/18 04:00 Temperature 98.3 F 98.8 F 97 F L Pulse Rate 78 67 61 Respiratory Rate 18 18 18 Blood Pressure 178/106 H 156/99 H 167/99 H Pulse Oximetry 97 98 91 L 01/06/18 08:00 01/06/18 12:00 Temperature 97.4 F L 97.8 F Pulse Rate 56 L 56 L Respiratory Rate 18 18 Blood Pressure 177/102 H 178/88 H Pulse Oximetry 97 96 Intake & Output 01/05/18 01/06/18 01/06/18 18:59 06:59 18:59 Intake Total 1262.5 / 1262.5 1969 / 1970 1000 / 1000 Output Total 1300 / 1300 Balance 1262.5 / 1262.5 670 / 670 1000 / 1000 Weight 60 kg Intake: IV 1262.5 / 1262.5 1250 / 1250 1000 / 1000 NS Inj 1,000 ML @ 100 mls/hr IV 1000 / 1000 1000 / 1000 1000 / 1000 .CONT .Q10H AURY Rx#:[id number] LR 1000 mL Inj 1,000 ML @ 30 0 / 0 0 / 0 mls/hr IV.SIG .Q24H AURY Rx#: [id number] Vancomycin Inj 1,000 MG In NS 262.5 / 262.5 250 / 250 Inj 250 ML @ 250 mls/hr IV.SIG Q12H AURY Rx#:[id number] Oral 720 / 720 Output: Urine 1300 / 1300 Other: # Voids 8 4 Date of Last Bowel Movement 01/05/18 # Bowel Movements 1 Narrative: GENERAL: AAOx3, no acute distress SKIN: Warm and dry. No rashes HEAD: Atruamtic, normocephalic. EYES: No scleral icterus. No injection or drainage. ENT: Moist mucous membranes, patent nares, no erythema of oropharynx. NECK: Supple, trachea midline. No JVD or lymphadenopathy. Normal thyroid. CARDIOVASCULAR: Regular rate and rhythm. No murmurs, gallops, or rubs. RESPIRATORY: Breath sounds clear equal bilaterally. No crackles or wheezes. No accessory muscle use. GASTROINTESTINAL: Abdomen soft, non-tender, nondistended, normal active bowel sounds MUSCULOSKELETAL: Left hand under gauze wrap, sutures appear clean, no acute swelling, good range of motion of all fingers, sensation intact NEURO: CN II-XII grossly intact, no focal deficits, no slurring of speech Results - Labs CBC & Chem 7: 01/02/18 07:15 01/06/18 05:33 Laboratory Results - last 24 hr 01/06/18 05:33 Creatinine 0.62 Estimated GFR Greater than 89 Microbiology 01/03/18 05:20 Blood - Peripheral Aerobic Blood Culture - Preliminary No growth in 3 days 01/03/18 05:20 Blood - Peripheral Anaerobic Blood Culture - Preliminary No growth in 3 days 01/03/18 05:27 Blood - Peripheral Aerobic Blood Culture - Preliminary No growth in 3 days 01/03/18 05:27 Blood - Peripheral Anaerobic Blood Culture - Preliminary No growth in 3 days 01/01/18 05:00 Blood - Peripheral Aerobic Blood Culture - Final No growth in 5 days 01/01/18 05:00 Blood - Peripheral Anaerobic Blood Culture - Final Staphylococcus aureus 01/01/18 05:15 Blood - Peripheral Aerobic Blood Culture - Final Staphylococcus aureus 01/01/18 05:15 Blood - Peripheral Anaerobic Blood Culture - Final No growth in 5 days Assessment and Plan - Plan Cellulitis/ Tenosynovitis/ Bacteremia Blood cultures growing staph aureus Wound culture growing staph and strep, MSSA s/p I&D of flexor tendon sheath and left index finger 01/03 Echocardiogram shows ejection fraction of 50-55%, no vegetations Continue oxycodone as main pain controlled, hydrocodone for breakthrough Continue IV vancomycin until p.o. determination provided by infectious disease Appreciate infectious disease consult Appreciate hand surgery consult HTN Patient started on lisinopril Polysubstance abuse Tox screen positive for cocaine. She also smokes. Cessation recommended, Continue nicotine patch. Discharge planning Cleared by hand surgery, awaiting clearance by infectious disease
[2018-01-06] MEDS ORDERED: Pharmacy Ordered Lab Info OTHER ONE (16:45)
--- NOTE | 2018-01-06 17:14 | P.PNID ---
Subjective Remarks: doing better afebrile repeat bl clx negative 2 D echo negative for veg's growing GAS, MSSA from her index finger clx Antibiotics: vancomcin Allergies/Adverse Reactions: Allergies cephalexin Allergy (Severe, Verified 01/01/18 04:42) HIVE penicillin G Allergy (Severe, Verified 01/01/18 04:42) HIVES, THROAT SWELLS propoxyphene Allergy (Severe, Verified 01/01/18 04:42) Hives diclofenac Adverse Reaction (Severe, Verified 01/01/18 04:42) GI BLEED etodolac Adverse Reaction (Severe, Verified 01/01/18 04:42) GI BLEED flurbiprofen Adverse Reaction (Severe, Verified 01/01/18 04:42) GI BLEED ibuprofen Adverse Reaction (Severe, Verified 01/01/18 04:42) GI BLEED indomethacin Adverse Reaction (Severe, Verified 01/01/18 04:42) GI BLEED ketoprofen Adverse Reaction (Severe, Verified 01/01/18 04:42) GI BLEED ketorolac Adverse Reaction (Severe, Verified 01/01/18 04:42) GI BLEED naproxen Adverse Reaction (Severe, Verified 01/01/18 05:30) GI BLEED oxaprozin Adverse Reaction (Severe, Verified 01/01/18 05:30) GI BLEED Objective Vital Signs 01/05/18 20:00 01/06/18 00:00 01/06/18 04:00 Temperature 98.3 F 98.8 F 97 F L Pulse Rate 78 67 61 Respiratory Rate 18 18 18 Blood Pressure 178/106 H 156/99 H 167/99 H Pulse Oximetry 97 98 91 L 01/06/18 08:00 01/06/18 12:00 01/06/18 16:00 Temperature 97.4 F L 97.8 F 98.3 F Pulse Rate 56 L 56 L 63 Respiratory Rate 18 18 18 Blood Pressure 177/102 H 178/88 H 170/92 H Pulse Oximetry 97 96 97 Intake & Output 01/05/18 01/06/18 01/06/18 18:59 06:59 18:59 Intake Total 1262.5 / 1262.5 1969 / 1969 1000 / 1000 Output Total 1300 / 1300 Balance 1262.5 / 1262.5 670 / 670 1000 / 1000 Weight 60 kg Intake: IV 1262.5 / 1262.5 1250 / 1250 1000 / 1000 NS Inj 1,000 ML @ 100 mls/hr IV 1000 / 1000 1000 / 1000 1000 / 1000 .CONT .Q10H [facility] Rx#:[id number] LR 1000 mL Inj 1,000 ML @ 30 0 / 0 0 / 0 mls/hr IV.SIG .Q24H [facility] Rx#: [id number] Vancomycin Inj 1,000 MG In NS 262.5 / 262.5 250 / 250 Inj 250 ML @ 250 mls/hr IV.SIG Q12H [facility] Rx#:[id number] Oral 720 / 720 Output: Urine 1300 / 1300 Other: # Voids 8 4 Date of Last Bowel Movement 01/05/18 # Bowel Movements 1 01/03/18 05:20 Blood - Peripheral Aerobic Blood Culture - Preliminary No growth in 3 days 01/03/18 05:20 Blood - Peripheral Anaerobic Blood Culture - Preliminary No growth in 3 days 01/03/18 05:27 Blood - Peripheral Aerobic Blood Culture - Preliminary No growth in 3 days 01/03/18 05:27 Blood - Peripheral Anaerobic Blood Culture - Preliminary No growth in 3 days 01/01/18 05:00 Blood - Peripheral Aerobic Blood Culture - Final No growth in 5 days 01/01/18 05:00 Blood - Peripheral Anaerobic Blood Culture - Final Staphylococcus aureus 01/01/18 05:15 Blood - Peripheral Aerobic Blood Culture - Final Staphylococcus aureus 01/01/18 05:15 Blood - Peripheral Anaerobic Blood Culture - Final No growth in 5 days 01/03/18 18:53 Abscess - Finger Gram Stain - Final 01/03/18 18:53 Abscess - Finger Wound Culture - Final Staphylococcus aureus Group A beta Strep 01/03/18 18:59 Abscess - Finger Gram Stain - Final 01/03/18 18:59 Abscess - Finger Wound Culture - Final Staphylococcus aureus Group A beta Strep 01/03/18 18:53 Wound - Finger Acid Fast Bacilli Smear - Final No acid fast bacilli seen 01/03/18 18:53 Wound - Finger Mycobacterial Culture - Pending 01/03/18 18:59 Abscess - Finger Acid Fast Bacilli Smear - Final No acid fast bacilli seen 01/03/18 18:59 Abscess - Finger Mycobacterial Culture - Pending 01/03/18 18:59 Abscess - Finger Fungal Smear - Final No fungal elements seen 01/03/18 18:59 Abscess - Finger Fungal Culture - Pending 01/03/18 18:53 Abscess - Finger Fungal Smear - Final No fungal elements seen 01/03/18 18:53 Abscess - Finger Fungal Culture - Pending Lab - Chemistry Results 01/06/18 05:33 Creatinine 0.62 Estimated GFR Greater than 89 Imaging: ITS Impressions Chest X-Ray 01/01/18 04:43 CONCLUSION: No evidence of acute cardiopulmonary disease. Hand X-Ray 01/01/18 04:45 CONCLUSION: Pointer finger predominant soft tissue swelling. No fracture or subluxation. Chest CTA 01/01/18 06:17 CONCLUSION: 1. No evidence of pulmonary embolus. 2. Nonspecific prominence of multiple bilateral axillary lymph nodes. Recommend clinical correlation. 3. Diffuse bilateral septal thickening and bibasilar atelectasis, with more focal regions of groundglass in the superior segment right lower lobe. Recommend short term (3 month) CT follow-up to ensure resolution. The axillary lymph nodes can also be further evaluated at this time. Hand CT 01/01/18 06:17 CONCLUSION: 1. Diffuse soft tissue swelling/edema of the index/pointer finger. No focal fluid collection to suggest an abscess. No fracture. Physical Exam: GENERAL: NAD SKIN: Warm and dry. HEAD: Atraumatic. Normocephalic. EYES: Pupils equal and round. No scleral icterus. No injection or drainage. ENT: No nasal bleeding or discharge. Mucous membranes pink and moist. NECK: Trachea midline. No JVD. CARDIOVASCULAR: Regular rate and rhythm. No murmurs. RESPIRATORY: No accessory muscle use. Clear to auscultation. Breath sounds equal bilaterally. GASTROINTESTINAL: Abdomen soft, non-tender, nondistended. Hepatic and splenic margins not palpable. MUSCULOSKELETAL: Extremities without clubbing, cyanosis, or edema. No obvious deformities. L hand with dressign in place; edema inmroved no ascending cellulits or lymphangioitis Epithrochlear lymph node no longer palpable NEUROLOGICAL: Awake and alert. No obvious cranial nerve deficits. Motor grossly within normal limits. Five out of 5 muscle strength in the arms and legs. Normal speech. PSYCHIATRIC: Appropriate mood and affect; insight and judgment normal. Assessment and Plan - Plan HIgh grade MSSA bactermia - source is probaly LIF - 2 D echo negative for veg's L index fibnger infection, MSSA Ascending cellulitis, lymphangitis of LUE High grade allergy to PCN, cephalosporines Pulmonary ground glass infiltrates. Pt is a smoker. cont vancomycin - keep trough 15-20 OK for PICC If negative will Rx with IV abx x 2 weeks from 1st neg blood clx
--- NOTE | 2018-01-06 17:15 | P.DCO ---
Post Hospital Infusion Therapy Location of Infusion Therapy: [facility] Infusion Therapy Order Patient Weight: 60 kg - Diagnosis (1) Abscess of left index finger Code(s): L02.512 - Cutaneous abscess of left hand (2) Suppurative tenosynovitis of flexor tendon of left hand Code(s): M65.142 - Other infective (teno)synovitis, left hand - Administer Medication Vancomycin Directions: q 12 hours Additional Dosing Instructions: 1250 mg IV Start Treatment: 01/07/18 Stop Treatment: 01/21/18 - Additional Information Venous Access: PICC Line Additional Instructions: [x] Peripheral flush and dressing changes per protocol [x] Implanted port and central vp cardiovascular service line: * Implanted port: 10 ml Normal Saline followed by 5 ml Heparin 100 units/ml Heparin flush after each use and monthly to maintain. [] May leave port accessed during therapy. [] May leave peripheral site accessed for duration of therapy. [x] If patient has SOB or respiratory distress, check oxygen saturation. If less than 90% or clinical signs of respiratory distress, administer oxygen at 2 L/min. via nasal cannula and notify physician. [x] Anaphylaxis/Reaction orders: * Stop infusion. * Keep IV line open with saline flush. * Notify physician. * Monitor vital signs every 15 minutes until symptoms resolve. * Check Oxygen saturation; Oxygen at 2 L/min. via nasal cannula if less than 90% or clinical signs of respiratory distress. * Administer diphenhydramine (Benadryl) 25 mg IV STAT, (unless patient has received as pre-med). May repeat once, if necessary. * Solu-Cortef 250 mg IVP over 30-60 seconds, use 100 mg vials for each dissolution. * Epinephrine (1mg/1 ml) 0.3 mg subcutaneously or IVP now with any signs of respiratory distress. * Check with physician for new additional pre-med orders if patient is re- challenged or re-treated. [x] May remove PICC line when treatment complete, after confirming with Physician. [x] If the patient is admitted to the hospital, the ED, or transferred via [facility] , complete transfer form including medication reconciliation order sheet. Weekly Labs: CBC w/diff, Creatinine, Vancomycin Trough Allergies cephalexin Allergy (Severe, Verified 01/01/18 04:42) HIVE penicillin G Allergy (Severe, Verified 01/01/18 04:42) HIVES, THROAT SWELLS propoxyphene Allergy (Severe, Verified 01/01/18 04:42) Hives diclofenac Adverse Reaction (Severe, Verified 01/01/18 04:42) GI BLEED etodolac Adverse Reaction (Severe, Verified 01/01/18 04:42) GI BLEED flurbiprofen Adverse Reaction (Severe, Verified 01/01/18 04:42) GI BLEED ibuprofen Adverse Reaction (Severe, Verified 01/01/18 04:42) GI BLEED indomethacin Adverse Reaction (Severe, Verified 01/01/18 04:42) GI BLEED ketoprofen Adverse Reaction (Severe, Verified 01/01/18 04:42) GI BLEED ketorolac Adverse Reaction (Severe, Verified 01/01/18 04:42) GI BLEED naproxen Adverse Reaction (Severe, Verified 01/01/18 05:30) GI BLEED oxaprozin Adverse Reaction (Severe, Verified 01/01/18 05:30) GI BLEED
[2018-01-07] MEDS: Vancomycin Inj 1,000 MG in Sodium Chlor 0.9% Inj 250 ML IV.SIG SCH (04:27)
[2018-01-07] MEDS: Sod Chloride 0.9% Inj 1,000 ML IV.CONT SCH ×3 (04:27→15:20)
[2018-01-07] MEDS: Senna/Docusate Sodium 8.6/50 MG Tablet PO SCH ×2 (09:05→20:17)
[2018-01-07] MEDS: Enoxaparin Inj 40 MG/0.4 ML Syringe SQ SCH (09:05)
[2018-01-07] MEDS: Lisinopril 10 MG Tablet PO SCH (09:05)
[2018-01-07] MEDS ORDERED: Heparin Central Flush 100 UNIT/ML 5 ML Vial IV.FLUSH PRN (10:28)
--- NOTE | 2018-01-07 16:27 | P.PNIM ---
Subjective Interval history: Patient has been cleared by hand surgery, infectious disease states that she will be stable for outpatient antibiotics. Patient was hoping to go home today but we will need time to make these arrangements. She requests pain medication on discharge. Physical Exam Vital signs: Vital Signs 01/06/18 20:00 01/07/18 00:00 01/07/18 04:00 Temperature 97.9 F 98.1 F 98.8 F Pulse Rate 61 61 52 L Respiratory Rate 15 15 18 Blood Pressure 166/98 H 158/94 H 166/96 H Pulse Oximetry 96 98 97 01/07/18 08:00 01/07/18 12:00 Temperature 98.2 F 98.4 F Pulse Rate 56 L 69 Respiratory Rate 18 18 Blood Pressure 180/95 H 196/100 H Pulse Oximetry 99 98 Intake & Output 01/06/18 01/07/18 01/07/18 18:59 06:59 18:59 Intake Total 2730 / 2730 1999 / 1999 1000 / 1000 Balance 2730 / 2730 1999 / 1999 1000 / 1000 Weight 60 kg 62.8 kg Intake: IV 2250 / 2250 1999 / 1999 1000 / 1000 NS Inj 1,000 ML @ 100 mls/hr IV 1999 / 1999 1999 / 1999 1000 / 1000 .CONT .Q10H [facility] Rx#:[id number] LR 1000 mL Inj 1,000 ML @ 30 0 / 0 mls/hr IV.SIG .Q24H [facility]Y Rx#: [id number] Vancomycin Inj 1,000 MG In NS 250 / 250 Inj 250 ML @ 250 mls/hr IV.SIG Q12H [facility] Rx#:[id number] Oral 480 / 480 Other: # Voids 14 7 Date of Last Bowel Movement 01/06/18 01/06/18 01/06/18 # Bowel Movements 1 1 Narrative: GENERAL: AAOx3, no acute distress SKIN: Warm and dry. No rashes HEAD: Atruamtic, normocephalic. EYES: No scleral icterus. No injection or drainage. ENT: Moist mucous membranes, patent nares, no erythema of oropharynx. NECK: Supple, trachea midline. No JVD or lymphadenopathy. Normal thyroid. CARDIOVASCULAR: Regular rate and rhythm. No murmurs, gallops, or rubs. RESPIRATORY: Breath sounds clear equal bilaterally. No crackles or wheezes. No accessory muscle use. GASTROINTESTINAL: Abdomen soft, non-tender, nondistended, normal active bowel sounds MUSCULOSKELETAL: Left hand under gauze wrap, sutures appear clean, no acute swelling, good range of motion of all fingers, sensation intact NEURO: CN II-XII grossly intact, no focal deficits, no slurring of speech Results - Labs CBC & Chem 7: 01/02/18 07:15 01/06/18 05:33 Laboratory Results - last 24 hr 01/06/18 16:40 Vancomycin Trough 11.2 H Microbiology 01/03/18 05:20 Blood - Peripheral Aerobic Blood Culture - Preliminary No growth in 4 days 01/03/18 05:20 Blood - Peripheral Anaerobic Blood Culture - Preliminary No growth in 4 days 01/03/18 05:27 Blood - Peripheral Aerobic Blood Culture - Preliminary No growth in 4 days 01/03/18 05:27 Blood - Peripheral Anaerobic Blood Culture - Preliminary No growth in 4 days Assessment and Plan - Plan Cellulitis/ Tenosynovitis/ Bacteremia Blood cultures growing staph aureus Wound culture growing staph and strep, MSSA s/p I&D of flexor tendon sheath and left index finger 01/03 Echocardiogram shows ejection fraction of 50-55%, no vegetations Continue oxycodone as main pain controlled, hydrocodone for breakthrough Continue IV vancomycin, PICC line placed today for discharge planning She will need to be on 24 hours doses ideally with vancomycin at home Appreciate infectious disease consult Appreciate hand surgery consult HTN Still elevated, increase lisinopril Polysubstance abuse Tox screen positive for cocaine. She also smokes. Cessation recommended, Continue nicotine patch. Discharge planning Cleared by hand surgery, awaiting final Rx for Q24 hour Vancomycin IV at home via PICC
[2018-01-08] MEDS: Vancomycin Inj 1,000 MG in Sodium Chlor 0.9% Inj 250 ML IV.SIG SCH ×3 (00:43→23:18)
[2018-01-08] MEDS: Sod Chloride 0.9% Inj 1,000 ML IV.CONT SCH ×2 (04:29→12:02)
[2018-01-08 06:36] LABS: Glomerular Filtration Rate Greater Than 89 mL/min (>89)
[2018-01-08] MEDS: Lisinopril 10 MG Tablet PO SCH (08:12)
[2018-01-08] MEDS: Senna/Docusate Sodium 8.6/50 MG Tablet PO SCH ×2 (08:12→20:59)
[2018-01-08] MEDS: Heparin Central Flush 100 UNIT/ML 5 ML Vial IV.FLUSH SCH (08:19)
[2018-01-08] MEDS: Enoxaparin Inj 40 MG/0.4 ML Syringe SQ SCH (08:20)
--- NOTE | 2018-01-08 11:28 | P.DCO ---
Post Hospital Infusion Therapy Location of Infusion Therapy: [facility] Therapy Order Patient Weight: 62.8 kg - Diagnosis (1) Abscess of left index finger Code(s): L02.512 - Cutaneous abscess of left hand (2) Suppurative tenosynovitis of flexor tendon of left hand Code(s): M65.142 - Other infective (teno)synovitis, left hand - Administer Medication Daptomycin Dose: 500 mg IV Directions: q 24 hours Start Treatment: 01/09/18 Stop Treatment: 01/21/18 - Additional Information Venous Access: PICC Line Additional Instructions: [x] Peripheral flush and dressing changes per protocol [x] Implanted port and central welder production line combination: * Implanted port: 10 ml Normal Saline followed by 5 ml Heparin 100 units/ml Heparin flush after each use and monthly to maintain. [] May leave port accessed during therapy. [] May leave peripheral site accessed for duration of therapy. [x] If patient has SOB or respiratory distress, check oxygen saturation. If less than 90% or clinical signs of respiratory distress, administer oxygen at 2 L/min. via nasal cannula and notify physician. [x] Anaphylaxis/Reaction orders: * Stop infusion. * Keep IV line open with saline flush. * Notify physician. * Monitor vital signs every 15 minutes until symptoms resolve. * Check Oxygen saturation; Oxygen at 2 L/min. via nasal cannula if less than 90% or clinical signs of respiratory distress. * Administer diphenhydramine (Benadryl) 25 mg IV STAT, (unless patient has received as pre-med). May repeat once, if necessary. * Solu-Cortef 250 mg IVP over 30-60 seconds, use 100 mg vials for each dissolution. * Epinephrine (1mg/1 ml) 0.3 mg subcutaneously or IVP now with any signs of respiratory distress. * Check with physician for new additional pre-med orders if patient is re- challenged or re-treated. [x] May remove PICC line when treatment complete, after confirming with Physician. [x] If the patient is admitted to the hospital, the ED, or transferred via [facility] , complete transfer form including medication reconciliation order sheet. Weekly Labs: CBC w/diff, CMP, Serum CK Levels Allergies cephalexin Allergy (Severe, Verified 01/01/18 04:42) HIVE penicillin G Allergy (Severe, Verified 01/01/18 04:42) HIVES, THROAT SWELLS propoxyphene Allergy (Severe, Verified 01/01/18 04:42) Hives diclofenac Adverse Reaction (Severe, Verified 01/01/18 04:42) GI BLEED etodolac Adverse Reaction (Severe, Verified 01/01/18 04:42) GI BLEED flurbiprofen Adverse Reaction (Severe, Verified 01/01/18 04:42) GI BLEED ibuprofen Adverse Reaction (Severe, Verified 01/01/18 04:42) GI BLEED indomethacin Adverse Reaction (Severe, Verified 01/01/18 04:42) GI BLEED ketoprofen Adverse Reaction (Severe, Verified 01/01/18 04:42) GI BLEED ketorolac Adverse Reaction (Severe, Verified 01/01/18 04:42) GI BLEED naproxen Adverse Reaction (Severe, Verified 01/01/18 05:30) GI BLEED oxaprozin Adverse Reaction (Severe, Verified 01/01/18 05:30) GI BLEED
--- NOTE | 2018-01-08 18:38 | P.PNIM ---
Subjective Interval history: Patient was hoping to go home today, she demonstrates how well she is moving her hand, she appears well controlled with her pain. She will be getting every 24 dosing with daptomycin until January 21, but this will take 1 more day to arrange with infusion clinic and approval from that side tomorrow. Physical Exam Vital signs: Vital Signs 01/07/18 20:00 01/08/18 00:00 01/08/18 04:00 Temperature 98 F 97.5 F L 97.9 F Pulse Rate 63 64 77 Respiratory Rate 18 Blood Pressure 157/102 H 151/100 H 166/79 H Pulse Oximetry 99 98 97 01/08/18 07:57 01/08/18 08:00 01/08/18 12:00 Temperature 97.6 F 97.8 F Pulse Rate 67 51 L 69 Respiratory Rate 18 Blood Pressure 165/96 H 162/110 H Pulse Oximetry 98 99 01/08/18 16:00 Temperature Pulse Rate 60 Respiratory Rate Blood Pressure Pulse Oximetry Intake & Output 01/07/18 01/08/18 01/08/18 18:59 06:59 18:59 Intake Total 1520 / 1520 2250 / 2250 250 / 250 Balance 1520 / 1520 2250 / 2250 250 / 250 Weight 62.8 kg Intake: IV 1000 / 1000 1250 / 1250 250 / 250 NS Inj 1,000 ML @ 100 mls/hr IV 1000 / 1000 1000 / 1000 .CONT .Q10H [facility] Rx#:[id number] Vancomycin Inj 1,000 MG In NS 250 / 250 250 / 250 Inj 250 ML @ 250 mls/hr IV.SIG Q12H [facility] Rx#:[id number] Oral 520 / 520 1000 / 1000 Other: # Voids 8 5 Date of Last Bowel Movement 01/06/18 01/06/18 Narrative: GENERAL: AAOx3, no acute distress SKIN: Warm and dry. No rashes HEAD: Atruamtic, normocephalic. EYES: No scleral icterus. No injection or drainage. ENT: Moist mucous membranes, patent nares, no erythema of oropharynx. NECK: Supple, trachea midline. No JVD or lymphadenopathy. Normal thyroid. CARDIOVASCULAR: Regular rate and rhythm. No murmurs, gallops, or rubs. RESPIRATORY: Breath sounds clear equal bilaterally. No crackles or wheezes. No accessory muscle use. GASTROINTESTINAL: Abdomen soft, non-tender, nondistended, normal active bowel sounds MUSCULOSKELETAL: Left hand under gauze wrap, sutures appear clean, no acute swelling, good range of motion of all fingers, sensation intact NEURO: CN II-XII grossly intact, no focal deficits, no slurring of speech Results - Labs CBC & Chem 7: 01/02/18 07:15 01/08/18 05:40 Laboratory Results - last 24 hr 01/08/18 05:40 Creatinine 0.69 Estimated GFR Greater than 89 Microbiology 01/03/18 05:20 Blood - Peripheral Aerobic Blood Culture - Final No growth in 5 days 01/03/18 05:20 Blood - Peripheral Anaerobic Blood Culture - Final No growth in 5 days 01/03/18 05:27 Blood - Peripheral Aerobic Blood Culture - Final No growth in 5 days 01/03/18 05:27 Blood - Peripheral Anaerobic Blood Culture - Final No growth in 5 days Assessment and Plan - Plan Cellulitis/ Tenosynovitis/ Bacteremia Blood cultures growing staph aureus Wound culture growing staph and strep, MSSA s/p I&D of flexor tendon sheath and left index finger 01/03 Echocardiogram shows ejection fraction of 50-55%, no vegetations Continue oxycodone for pain control Continue IV vancomycin, PICC line placed, daptomycin 500 every 24 hours on discharge Appreciate infectious disease consult Appreciate hand surgery consult HTN Still elevated, increase lisinopril Polysubstance abuse Tox screen positive for cocaine. She also smokes. Cessation recommended, Continue nicotine patch. Discharge planning Cleared by hand surgery and infectious disease. Q. 24 hour daptomycin planned Awaiting approval from infusion clinic prior to discharge
[2018-01-09] MEDS: Senna/Docusate Sodium 8.6/50 MG Tablet PO SCH (08:56)
[2018-01-09] MEDS: Lisinopril 10 MG Tablet PO SCH (08:56)
[2018-01-09] MEDS: Heparin Central Flush 100 UNIT/ML 5 ML Vial IV.FLUSH SCH (08:57)
[2018-01-09] MEDS: Enoxaparin Inj 40 MG/0.4 ML Syringe SQ SCH (08:58)
[2018-01-09 09:00] VITALS: RESP 18
--- NOTE | 2018-01-09 11:43 | P.DS ---
Date of admission: 01/01/18 08:22 Primary care physician: UNKNOWN Brief History from admission: This is a pleasant 52 y/o Female who came to ER with complaint of pleuritic chest pain and shortness of breath also for complaint of injury to the left index finger. One week ago she shut her left index finger into her car door and then 2 days ago started noticing redness since patient is able to move the finger back and forth but is not able to palpate the finger secondary to severe pain with palpation. complaint of chest pain worse with activity and deep breathing. Patient denies any recent trauma or injury. No fever chills. No axillary tenderness or lymphadenopathy. Patient is right-handed. She has history of Bowel obstruction, Alcohol dependence and abuse, tobacco dependence, IDU erythema and edema on the left hand specially on the dorsal aspect and affecting the left index finger with ulcerative abrasion injury, radial aspect 2cm x 2cm with serous drainage, Patient has second lesion on the dorsal aspect of the mid left forearm no purulent drainage minimally tender to direct palpation no deformity noted. CTA negative for PE; CT left hand shows no evidence of fluid collection for abscess positive soft tissue is noted specifically of the left index finger. was discussed by ER specialist with Hand crop pest control specialist doctor Wilder Brownlee at this point time patient does not appear to have acute surgical tenosynovitis affecting the left index finger as no pain on flexion extension of the digit passively or actively however patient does have evidence of cellulitis with marked swelling of the left index finger per hand surgeon request consult after admitted to medicine service. DS: Medications - Discharge Medications Prescriptions: oxycodone 10 mg PO Q4-6H PRN 3 Days #15 tab PRN Reason: Acute Pain DS: Summary Hospital Course: 52-year-old female who presented with a left hand infection after suffering a [place]. Her infection was severe and required an incision and drainage performed on 01/03/2018. She has done well postop, denies any numbness of her fingertips, is able to have nearly full range of motion and much reduction in her swelling. Her pain tolerance is high due to a history of abuse of narcotics, she denies any current abuse, her pain has been well controlled on oxycodone. She has no insurance at the moment but has been approved for daptomycin at the infusion clinic on an outpatient basis. PICC line was placed yesterday and she is appropriate for discharge today. Follow-up is arranged and she is being sent home with pain meds. She has an outpatient follow-up with hand surgery. - Time Spent with Patient Total time spent providing and/or coordinating discharge services: Less than 30 minutes Exam Vital signs: Vital Signs 01/08/18 12:00 01/08/18 16:00 01/08/18 20:00 Temperature 97.8 F 97.9 F 98.0 F Pulse Rate 69 65 62 Respiratory Rate 18 18 16 Blood Pressure 162/110 H 141/97 H 144/111 H Pulse Oximetry 99 97 97 01/08/18 23:40 01/09/18 00:00 01/09/18 04:00 Temperature 97.7 F 98.0 F Pulse Rate 68 71 65 Respiratory Rate 16 16 Blood Pressure 143/78 H 157/94 H Pulse Oximetry 98 98 01/09/18 08:00 Temperature 97.8 F Pulse Rate 55 L Respiratory Rate 18 Blood Pressure 158/96 H Pulse Oximetry 96 Intake & Output 01/08/18 01/09/18 01/09/18 18:59 06:59 18:59 Intake Total 1630 / 1630 970 / 970 Balance 1630 / 1630 970 / 970 Weight 62.8 kg 63.2 kg Intake: IV 1250 / 1250 250 / 250 NS Inj 1,000 ML @ 100 mls/hr IV 1000 / 1000 .CONT .Q10H [facility] Rx#:[id number] Vancomycin Inj 1,000 MG In NS 250 / 250 250 / 250 Inj 250 ML @ 250 mls/hr IV.SIG Q12H [facility] Rx#:[id number] Oral 380 / 380 720 / 720 Other: # Voids 4 6 Date of Last Bowel Movement 01/08/18 # Bowel Movements 1 Results Procedures completed during hospitalization: I & D 01/02/18 PICC Line 01/08/18 - Impressions ITS Impressions Chest X-Ray 01/01/18 04:43 CONCLUSION: No evidence of acute cardiopulmonary disease. Hand X-Ray 01/01/18 04:45 CONCLUSION: Pointer finger predominant soft tissue swelling. No fracture or subluxation. Chest CTA 01/01/18 06:17 CONCLUSION: 1. No evidence of pulmonary embolus. 2. Nonspecific prominence of multiple bilateral axillary lymph nodes. Recommend clinical correlation. 3. Diffuse bilateral septal thickening and bibasilar atelectasis, with more focal regions of groundglass in the superior segment right lower lobe. Recommend short term (3 month) CT follow-up to ensure resolution. The axillary lymph nodes can also be further evaluated at this time. Hand CT 01/01/18 06:17 CONCLUSION: 1. Diffuse soft tissue swelling/edema of the index/pointer finger. No focal fluid collection to suggest an abscess. No fracture. Discharge Plan - Discharge Disposition Patient Disposition: 01 Discharge Home - Discharge Condition Condition: Stable - Discharge Order Discharge Orders: Discharge Order (Routine); Ordered 01/09/18 Ordered By: José Luis Chung - Physicians Team Primary Care Provider: UNKNOWN, Attending Provider: José Luis Chung Other Providers: Armen Chapa MD ; Inez Yarbrough MD
[2018-01-09] MEDS: Vancomycin Inj 1,000 MG in Sodium Chlor 0.9% Inj 250 ML IV.SIG SCH (11:52)
[2018-01-09 13:08] VITALS: BP 163/102; PULSE 73; TEMP 98; O2SAT 97
== END 2018-01-09 14:30 | disposition home or self-care (01) ==
LOC: NEPC 04:39 → NEDA 08:22 → N04 12:16
PROVIDERS: ADMIT Family Medicine; ATTEND Family Medicine